=== PATIENT | female | born 1960 | race Caucasian/White ===

== ENCOUNTER 2024-12-07 13:48 | Observation (INO) | payer BC, MEDICARE ==
[2024-12-07 14:26] LABS: Basophils % (A) 0 %; Eosinophils # (A) 0.3 k/uL (0-0.7); Eosinophils % (A) 3 %; HCT 44.5 % (34.0-46.0); HGB 14.1 gm/dL (11.4-16.0); Lymphocytes # (A) 2.6 k/uL (1.0-4.8); Lymphocytes % (A) 26 %; MCH 28.9 pg (25.0-35.0); MCHC 31.7 g/dL (31.0-37.0); MCV 91.4 fL (80.0-100.0); Mean Platelet Volume 8.4; Monocytes # (A) 0.4 k/uL (0-1.0); Monocytes % (A) 4 %; Neutrophils # (A) 6.3 k/uL (1.3-7.7); Neutrophils % (A) 64 %; Platelet Count 390 k/uL (150-450); RBC 4.87 m/uL (3.80-5.40); RDW 13.4 % (11.5-15.5); WBC 9.9 k/uL (3.8-10.6)
--- NOTE | 2024-12-07 14:35 | ED ---
General Adult HPI - General Source: patient, RN notes reviewed Mode of arrival: wheelchair Limitations: no limitations <Phill Padron - Last Filed: 12/07/24 14:33> - General Source: patient, RN notes reviewed Limitations: no limitations <Arthur Chester - Last Filed: 12/07/24 20:09> - General Chief complaint: Chest Pain Stated complaint: Chest pain Time Seen by Provider: 12/07/24 14:02 - History of Present Illness Initial comments: Quick note: This is a 63-year-old female with history of GERD and diverticulitis presenting with upper abdominal pain and dyspnea since this morning. Patient states pressure (10/10) radiates to mid chest with worsening pain when coughing. Endorses associated nausea. Endorses use of sucralfate and alendronate with minimal relief. Patient states current pain is unlike other prior GI pain she has experienced. (Phill Padron) Patient is a 63-year-old female present to the emergency department with concerns for abdominal and chest discomfort. Onset of symptoms was prior to arrival. Discomfort was somewhat severe however now is mild. Discomfort started in the epigastric region and then went to the chest and now is beneath the left breast. Patient did have some associated dyspnea. No diaphoresis. Patient has had some mild nausea and spitting up. Patient does have history of a hiatal hernia. Patient does not have history of similar symptoms previously (Arthur Chester) - Related Data Allergies Allergy/AdvReac Type Severity Reaction Status Date / Time codeine Allergy Rash/Hives Verified 12/07/24 14:05 Penicillins Allergy Rash/Hives Verified 12/07/24 14:05 Review of Systems ROS Other: All systems not noted in ROS Statement are negative. <Phill Padron - Last Filed: 12/07/24 14:33> ROS Other: All systems not noted in ROS Statement are negative. Constitutional: Denies: fever Eyes: Denies: eye pain ENT: Denies: throat pain Respiratory: Reports: as per HPI Cardiovascular: Reports: as per HPI, chest pain Gastrointestinal: Reports: as per HPI Musculoskeletal: Denies: back pain Skin: Denies: rash Neurological: Denies: weakness <Arthur Chester - Last Filed: 12/07/24 20:09> ROS Statement: Those systems with pertinent positive or pertinent negative responses have been documented in the HPI. Past Medical History Past Medical History: GERD/Reflux Additional Past Medical History / Comment(s): hernia, diverticulosis History of Any Multi-Drug Resistant Organisms: None Reported Past Surgical History: Cholecystectomy Additional Past Surgical History / Comment(s): upper scope Past Psychological History: No Psychological Hx Reported Smoking Status: Never smoker Past Alcohol Use History: None Reported Past Drug Use History: Marijuana <Phill Padron - Last Filed: 12/07/24 14:33> General Exam Limitations: no limitations <Phill Padron - Last Filed: 12/07/24 14:33> Limitations: no limitations General appearance: alert, in no apparent distress Head exam: Present: normocephalic Eye exam: Present: normal appearance Neck exam: Present: normal inspection Respiratory exam: Present: normal lung sounds bilaterally. Absent: chest wall tenderness Cardiovascular Exam: Present: regular rate, normal rhythm, normal heart sounds Expanded Peripheral pulses: 2+: Radial (R), Radial (L), Posterior Tibialis (R), Posterior Tibialis (L) GI/Abdominal exam: Present: soft, tenderness (Minimal epigastric tenderness to palpation), normal bowel sounds. Absent: distended, guarding, rebound, rigid, pulsatile mass Extremities exam: Present: normal inspection. Absent: pedal edema, calf tenderness Neurological exam: Present: alert Psychiatric exam: Present: normal affect, normal mood Skin exam: Present: normal color <ChesterArthur - Last Filed: 12/07/24 20:09> - General Exam Comments Initial Comments: Visual Physical Exam Vital signs reviewed General: Pallor noted. Patient appears distressed.. Head: Normocephalic, atraumatic Eyes: PERRLA, EOMI ENT: Airway patent Chest: Nonlabored breathing Skin: No visual rash, normal skin tone Neuro: Alert and oriented 3 Musculoskeletal: No gross abnormalities (Phill Padron) Course Vital Signs 12/07/24 12/07/24 12/07/24 14:01 16:25 16:54 Temperature 97.9 F Pulse Rate 66 69 70 Respiratory 18 16 16 Rate Blood Pressure 174/96 122/79 111/76 O2 Sat by Pulse 99 97 98 Oximetry 12/07/24 17:56 Temperature Pulse Rate 72 Respiratory 20 Rate Blood Pressure 114/81 O2 Sat by Pulse 99 Oximetry EKG Findings - EKG Results: EKG: interpreted by ERMD, sinus rhythm, normal axis, normal QRS, normal ST/T <Arthur Chester - Last Filed: 12/07/24 20:09> Medical Decision Making - Lab Data Result diagrams: 12/07/24 14:12 <Phill Padron - Last Filed: 12/07/24 14:33> - Lab Data Result diagrams: 12/07/24 14:12 12/07/24 14:12 <Arthur Chester - Last Filed: 12/07/24 20:09> - Medical Decision Making I completed the quick note portion of this chart signed HUMBERTO Ackerman (Phill Padron) Was pt. sent in by a medical professional or institution (JULIAN Bautista, INTERIOR DESIGN CONSULTANT, urgent care, hospital, or retirement...) When possible be specific @ -No Did you speak to anyone other than the patient for history (EMS, parent, family, police, friend...)? What history was obtained from this source @ -No Did you review nursing and triage notes (agree or disagree)? Why? @ -I reviewed and agree with nursing and triage notes Were old charts reviewed (outside hosp., previous admission, EMS record, old EKG, old radiological studies, urgent care reports/EKG's, retirement records)? Report findings @ -No old charts were reviewed Differential Diagnosis (chest pain, altered mental status, abdominal pain women, abdominal pain men, vaginal bleeding, weakness, fever, dyspnea, syncope, headache, dizziness, GI bleed, back pain, seizure, CVA, palpatations, mental health, musculoskeletal)? @ -Differential Chest Pain: Stable Angina, Unstable Angina, STEMI, NSTEMI Aortic Dissection, Pneumothorax, Musculoskeletal, Esophageal Spasm GERD, Cholecystitis, Pancreatitis, Zoster, this is not meant to be an all-inclusive list. EKG interpreted by me (3pts min.). @ -As above X-rays interpreted by me (1pt min.). @ -Chest and abdominal x-ray revealed no acute abnormality CT interpreted by me (1pt min.). @ -None done U/S interpreted by me (1pt. min.). @ -None done What testing was considered but not performed or refused? (CT, X-rays, U/S, labs)? Why? @ -None What meds were considered but not given or refused? Why? @ -None Did you discuss the management of the patient with other professionals (professionals i.e. DrEstela, PA, INTERIOR DESIGN CONSULTANT, lab, RT, psych nurse, high school social science teacher, plate worker, teacher, tank officer, case aide)? Give summary @ -Case discussed with practitioner Lizet who will admit covering hospital call Was smoking cessation discussed for >3mins.? @ -No Was critical care preformed (if so, how long)? @ -No Were there social determinants of health that impacted care today? How? (Homelessness, low income, unemployed, alcoholism, drug addiction, transp ortation, low edu. Level, literacy, decrease access to med. care, fci, rehab)? @ -No Was there de-escalation of care discussed even if they declined (Discuss DNR or withdrawal of care, Hospice)? DNR status @ -No What co-morbidities impacted this encounter? (DM, HTN, Smoking, COPD, CAD, Cancer, CVA, ARF, Chemo, Hep., AIDS, mental health diagnosis, sleep apnea, morbid obesity)? @ -None Was patient admitted / discharged? Hospital course, mention meds given and route, prescriptions, significant lab abnormalities, going to OR and other pertinent info. @ -Patient presents with epigastric and chest discomfort. Symptoms improved on reevaluation. Patient updated. Patient will be admitted, admission orders written. Undiagnosed new problem with uncertain prognosis? @ -No Drug Therapy requiring intensive monitoring for toxicity (Heparin, Nitro, Insulin, Cardizem)? @ -No Were any procedures done? @ -No Diagnosis/symptom? @ -Chest pain Acute, or Chronic, or Acute on Chronic? @ -Acute chest pain, Uncomplicated (without systemic symptoms) or Complicated (systemic symptoms)? @ -Default Side effects of treatment? @ -No Exacerbation, Progression, or Severe Exacerbation? @ -No Poses a threat to life or bodily function? How? (Chest pain, [place], [place], pneumonia, PE, COPD, DKA, ARF, appy, cholecystitis, CVA, Diverticulitis, Homicidal, Suicidal, threat to staff... and all critical care pts) @ -Threat to cardiac function (Arthur Chester) - Lab Data Lab Results 12/07/24 12/07/24 12/07/24 Range/Units 14:12 14:12 16:31 WBC 9.9 (3.8-10.6) k/uL RBC 4.87 (3.80-5.40) m/uL Hgb 14.1 (11.4-16.0) gm/dL Hct 44.5 (34.0-46.0) % MCV 91.4 (80.0-100.0) fL MCH 28.9 (25.0-35.0) pg MCHC 31.7 (31.0-37.0) g/dL RDW 13.4 (11.5-15.5) % Plt Count 390 (150-450) k/uL MPV 8.4 Neutrophils % 64 % Lymphocytes % 26 % Monocytes % 4 % Eosinophils % 3 % Basophils % 0 % Neutrophils # 6.3 (1.3-7.7) k/uL Lymphocytes # 2.6 (1.0-4.8) k/uL Monocytes # 0.4 (0-1.0) k/uL Eosinophils # 0.3 (0-0.7) k/uL Basophils # 0.0 (0-0.2) k/uL PT 10.3 (10.0-12.5) sec INR 0.9 (<1.2) APTT 26.9 (22.0-30.0) sec D-Dimer 0.51 (<0.60) mg/L FEU Sodium 136 L (137-145) mmol/L Potassium 3.8 (3.5-5.1) mmol/L Chloride 96 L (98-107) mmol/L Carbon Dioxide 22 (22-30) mmol/L Anion Gap 18 mmol/L BUN 11 (7-17) mg/dL Creatinine 0.62 (0.52-1.04) mg/dL Est GFR (CKD-EPI)AfAm >90 (>60 ml/min/1.73 sqM) Est GFR (CKD-EPI)NonAf >90 (>60 ml/min/1.73 sqM) Glucose 111 H (74-99) mg/dL Calcium 10.1 (8.4-10.2) mg/dL Total Bilirubin 0.8 (0.2-1.3) mg/dL AST 33 (14-36) U/L ALT 23 (4-34) U/L Alkaline Phosphatase 100 (38-126) U/L Troponin I (0.000-0.034) ng/mL Total Protein 8.1 (6.3-8.2) g/dL Albumin 5.2 H (3.5-5.0) g/dL Amylase 79 (30-110) U/L Lipase 115 (23-300) U/L 12/07/24 Range/Units 16:31 WBC (3.8-10.6) k/uL RBC (3.80-5.40) m/uL Hgb (11.4-16.0) gm/dL Hct (34.0-46.0) % MCV (80.0-100.0) fL MCH (25.0-35.0) pg MCHC (31.0-37.0) g/dL RDW (11.5-15.5) % Plt Count (150-450) k/uL MPV Neutrophils % % Lymphocytes % % Monocytes % % Eosinophils % % Basophils % % Neutrophils # (1.3-7.7) k/uL Lymphocytes # (1.0-4.8) k/uL Monocytes # (0-1.0) k/uL Eosinophils # (0-0.7) k/uL Basophils # (0-0.2) k/uL PT (10.0-12.5) sec INR (<1.2) APTT (22.0-30.0) sec D-Dimer (<0.60) mg/L FEU Sodium (137-145) mmol/L Potassium (3.5-5.1) mmol/L Chloride (98-107) mmol/L Carbon Dioxide (22-30) mmol/L Anion Gap mmol/L BUN (7-17) mg/dL Creatinine (0.52-1.04) mg/dL Est GFR (CKD-EPI)AfAm (>60 ml/min/1.73 sqM) Est GFR (CKD-EPI)NonAf (>60 ml/min/1.73 sqM) Glucose (74-99) mg/dL Calcium (8.4-10.2) mg/dL Total Bilirubin (0.2-1.3) mg/dL AST (14-36) U/L ALT (4-34) U/L Alkaline Phosphatase (38-126) U/L Troponin I <0.012 (0.000-0.034) ng/mL Total Protein (6.3-8.2) g/dL Albumin (3.5-5.0) g/dL Amylase (30-110) U/L Lipase (23-300) U/L Disposition <Phill Padron - Last Filed: 12/07/24 14:33> Is patient prescribed a controlled substance at d/c from ED?: No Time of Disposition: 20:09 <Arthur Chester - Last Filed: 12/07/24 20:09> Clinical Impression: Chest pain Disposition: ADMITTED IP TO THIS HOSP Referrals: Nonstaff,Physician [REFERRING] - 1-2 days
[2024-12-07 14:45] LABS: ALT 23 U/L (4-34); AST 33 U/L (14-36); African American GFR (CKD) >90 (>60 ml/min/1.73 sqM); Albumin 5.2 g/dL (3.5-5.0); Alkaline Phosphatase 100 U/L (38-126); Amylase 79 U/L (30-110); Anion Gap 18 mmol/L; Blood Urea Nitrogen 11 mg/dL (7-17); Calcium 10.1 mg/dL (8.4-10.2); Carbon Dioxide 22 mmol/L (22-30); Chloride 96 mmol/L (98-107); Glucose 111 mg/dL (74-99); Lipase 115 U/L (23-300); Non-African American GFR(CKD) >90 (>60 ml/min/1.73 sqM); Potassium 3.8 mmol/L (3.5-5.1); Sodium 136 mmol/L (137-145); Total Bilirubin 0.8 mg/dL (0.2-1.3); Total Protein 8.1 g/dL (6.3-8.2)
--- NOTE | 2024-12-07 15:15 | XR ---
EXAMINATION TYPE: XR chest 2V DATE OF EXAM: 12/07/2024 CLINICAL INDICATION: Female, 63 years old with history of Upper abdominal pain, dyspnea, TECHNIQUE: Frontal and lateral views of the chest are obtained. COMPARISON: None FINDINGS: There is no suspicious focal air space opacity, pleural effusion, or pneumothorax seen. T he cardiac silhouette size is within normal limits. Scoliotic curvature is present. IMPRESSION: No acute cardiopulmonary process. [facility], , 12/07/2024 3:12 PM
--- NOTE | 2024-12-07 15:16 | XR ---
EXAMINATION TYPE: XR KUB DATE OF EXAM: 12/07/2024 3:02 PM CLINICAL INDICATION: Female, 63 years old with history of abdominal pain, pain TECHNIQUE: 2 upright views of the abdomen. COMPARISON: None. FINDINGS: Scattered gas is seen in non-distended small bowel loops. Gas and fecal material is seen in non-distended colon. Lung bases are clear. Cholecystectomy clips are seen. There is surgical change at the lumbosacral junction noted. No free air. There is degenerative spurring and narrowing at the l eft L3-L4 and L4-L5 disc spaces. Incidental overlying metallic umbilical ornament. IMPRESSION: Overall nonobstructive bowel gas pattern. [facility], , 12/07/2024 3:14 PM
[2024-12-07 17:06] LABS: INR 0.9 (<1.2); Partial Thromboplastin Time 26.9 sec (22.0-30.0); Prothrombin Time 10.3 sec (10.0-12.5)
[2024-12-07] MEDS ORDERED: NITROGLYCERIN SL TABS 0.4 MG TAB SUBLINGUAL PRN (20:09)
[2024-12-07] MEDS: ASPIRIN 81 MG PO STA (20:33)
[2024-12-07] MEDS: ONDANSETRON 4 MG/2 ML VIAL IVP STA (20:33)
[2024-12-07 20:40] LABS: Glucose,Whole Blood 107 mg/dL (70-110)
[2024-12-07] MEDS ORDERED: ONDANSETRON 4 MG/2 ML VIAL IVP PRN (21:06)
[2024-12-07] MEDS ORDERED: PROCHLORPERAZINE INJ 10 MG/2 ML VIAL IVP PRN (21:06)
[2024-12-07] MEDS ORDERED: CALCIUM CARBONATE 500 MG CHEWABLE PO PRN (21:07)
[2024-12-07] MEDS ORDERED: MAG HYDROX/AL HYDROX/SIMETH 30 ML CUP PO PRN (21:07)
[2024-12-07] MEDS ORDERED: ALBUTEROL NEBULIZED 2.5 MG/3 ML INHALATION PRN (21:08)
[2024-12-07] MEDS ORDERED: ACETAMINOPHEN TAB 325 MG TAB PO PRN (21:09)
[2024-12-07] MEDS: NITROGLYCERIN OINT 1 INCH/GM PACKET TOPICAL SCH (21:35)
[2024-12-07] MEDS: ATORVASTATIN 40 MG TAB PO SCH (21:36)
[2024-12-07] MEDS: SUCRALFATE 1 GM TAB PO SCH (21:36)
[2024-12-07] MEDS: PANTOPRAZOLE 40 MG/10 ML VIAL IVP SCH (21:37)
[2024-12-07] MEDS: BUTALB/APAP/CAFF 50-325-40MG TAB PO PRN (21:49)
[2024-12-08] MEDS: ASPIRIN 81 MG PO SCH (08:56)
[2024-12-08] MEDS ORDERED: ASPIRIN 325 MG TAB PO SCH (09:00)
--- NOTE | 2024-12-08 10:20 | P.CRDCN ---
History of Present Illness History of present illness: HISTORY OF PRESENT ILLNESS: This is a 63-year-old female with a past medical history significant for GERD and hyperlipidemia. 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 We have been asked to see the patient in consultation for chest pain. Patient examined at the bedside. Patient states she developed left-sided chest pain yesterday. She also reports having pain under the left rib cage. She denied any radiation of the pain. She states that she has never experienced discomfort like this in the past. She states that she has a history of a hiatal hernia and initially thought her symptoms were attributed to that. She denies any known history of CAD. She is a non-smoker. She does report alcohol use. She states that her sister of a heart attack but was taking fen-phen at the time. DIAGNOSTICS: - EKG reveals sinus mechanism with nonspecific ST-T wave changes. - Chest xray negative for acute process. - Laboratory data: WBC 9.9. Hemoglobin 14.1. Platelet count 390. D-dimer 0.51. Sodium 136. Potassium 3.8. BUN 11. Creatinine 0.62. Troponin negative x 3. - Current home cardiac medications include rosuvastatin 20 mg daily. - No previous echocardiogram, stress test, or cardiac catheterization available in EMR for review REVIEW OF SYSTEMS: At the time of my exam: CONSTITUTIONAL: Denies fever or chills. HEENT: Denies blurred vision, vision changes, or eye pain. Denies hemoptysis CARDIOVASCULAR: Denies chest pain. Denies orthopnea. Denies PND. Denies pa lpitations RESPIRATORY: Denies shortness of breath. GASTROINTESTINAL: Denies abdominal pain. Denies nausea or vomiting. HEMATOLOGIC: Denies bleeding disorders. GENITOURINARY: Denies any blood in urine. SKIN: Denies pruitis. Denies rash. PHYSICAL EXAM: VITAL SIGNS: Reviewed. GENERAL: Well-developed in no acute distress. HEENT: Head is normocephalic. Pupils are equal, round. Sclerae anicteric. Mucous membranes of the mouth are moist. Neck supple. No JVD or thyromegaly LUNGS: Respirations even and unlabored. Lungs essentially clear to auscultation bilaterally. HEART: Regular rate and rhythm. S1 and S2 heard. ABDOMEN: Soft. Nondistended. Nontender. EXTREMITIES: Normal range of motion. No clubbing or cyanosis. Peripheral pulses intact. No lower extremity edema NEUROLOGIC: Awake and alert. Oriented x 3. ASSESSMENT: Chest pain, troponin negative x 3 Hyperlipidemia GERD History of hiatal hernia PLAN: An acute coronary event has been ruled out Obtain 2D echo to assess cardiac structure and function Resume statin Add aspirin 81 mg daily Patient to undergo stress echocardiogram on Tuesday Further recommendations pending patient course Nurse practitioner note has been reviewed by physician. Signing provider agrees with the documented findings, assessment, and plan of care documented by RADIOSONDE OPERATOR as a scribe. Past Medical History Past Medical History: GERD/Reflux Additional Past Medical History / Comment(s): hernia, diverticulosis History of Any Multi-Drug Resistant Organisms: None Reported Past Surgical History: Cholecystectomy Additional Past Surgical History / Comment(s): upper scope Past Psychological History: No Psychological Hx Reported Smoking Status: Never smoker Past Alcohol Use History: None Reported Past Drug Use History: Marijuana Medications and Allergies Home Medications Medication Instructions Recorded Confirmed Type Albuterol Inhaler [Ventolin Hfa 2 puff INHALATION RT-QID PRN 12/07/24 12/07/24 History Inhaler] Butalb/APAP/Caff 50-325-40Mg 1 dose PO DIRECTED PRN 12/07/24 12/07/24 History [Fioricet 50-325-40] Effexor Xr(Unknown Dose) 1 cap PO DAILY 12/07/24 12/07/24 History Oxybutynin Xl [Ditropan XL] 5 mg PO DIRECTED 12/07/24 12/07/24 History Rosuvastatin [Crestor] 20 mg PO DIRECTED 12/07/24 12/07/24 History Sucralfate [Carafate] 1 gm PO ACHS 12/07/24 12/07/24 History Allergies Allergy/AdvReac Type Severity Reaction Status Date / Time codeine Allergy Rash/Hives Verified 12/07/24 21:02 Penicillins Allergy Rash/Hives Verified 12/07/24 21:02 Physical Exam Vitals: Vital Signs Temp Pulse Resp BP Pulse Ox 12/08/24 06:12 63 16 139/85 12/08/24 01:07 78 16 116/77 97 12/07/24 23:21 61 18 12/07/24 20:27 76 20 133/89 98 12/07/24 17:56 72 20 114/81 99 12/07/24 16:54 70 16 111/76 98 12/07/24 16:25 69 16 122/79 97 12/07/24 14:01 97.9 F 66 18 174/96 99 Results 12/07/24 14:12 12/07/24 14:12 Cardiac Enzymes 12/07/24 12/07/24 12/07/24 Range/Units 14:12 16:31 20:43 AST 33 (14-36) U/L Troponin I <0.012 <0.012 (0.000-0.034) ng/mL 12/07/24 Range/Units 23:28 AST (14-36) U/L Troponin I <0.012 (0.000-0.034) ng/mL Coagulation 12/07/24 Range/Units 16:31 PT 10.3 (10.0-12.5) sec APTT 26.9 (22.0-30.0) sec CBC 12/07/24 Range/Units 14:12 WBC 9.9 (3.8-10.6) k/uL RBC 4.87 (3.80-5.40) m/uL Hgb 14.1 (11.4-16.0) gm/dL Hct 44.5 (34.0-46.0) % Plt Count 390 (150-450) k/uL Comprehensive Metabolic Panel 12/07/24 Range/Units 14:12 Sodium 136 L (137-145) mmol/L Potassium 3.8 (3.5-5.1) mmol/L Chloride 96 L (98-107) mmol/L Carbon Dioxide 22 (22-30) mmol/L BUN 11 (7-17) mg/dL Creatinine 0.62 (0.52-1.04) mg/dL Glucose 111 H (74-99) mg/dL Calcium 10.1 (8.4-10.2) mg/dL AST 33 (14-36) U/L ALT 23 (4-34) U/L Alkaline Phosphatase 100 (38-126) U/L Total Protein 8.1 (6.3-8.2) g/dL Albumin 5.2 H (3.5-5.0) g/dL Current Medications Generic Name Dose Route Start Last Admin Trade Name Freq PRN Reason Stop Dose Admin Acetaminophen 650 mg 12/07/24 21:09 Acetaminophen Tab 325 Mg Tab PO Q6HR PRN Fever and/ or Pain Acetaminophen/Butalbital/Caffeine 1 each 12/07/24 21:08 12/07/24 21:49 Butalb/Apap/Caff 50-325-40mg Tab PO 1 each Q4HR PRN Administration Migraine Headache Al Hydroxide/Mg Hydroxide 30 ml 12/07/24 21:07 Mag Hydrox/Al Hydrox/Simeth 30 Ml Cup PO QID PRN GI Upset Albuterol Sulfate 2.5 mg 12/07/24 21:08 Albuterol Nebulized 2.5 Mg/3 Ml INHALATION RT-QID PRN Shortness Of Breath Aspirin 325 mg 12/08/24 09:00 Aspirin 325 Mg Tab PO DAILY [facility] Atorvastatin Calcium 40 mg 12/07/24 21:15 12/07/24 21:36 Atorvastatin 40 Mg Tab PO 40 mg HS [facility] Administration Calcium Carbonate/Glycine 500 mg 12/07/24 21:07 Calcium Carbonate 500 Mg Chewable PO QID PRN Heartburn Nitroglycerin 0.4 mg 12/07/24 20:09 Nitroglycerin Sl Tabs 0.4 Mg Tab SUBLINGUAL Q5M PRN Chest Pain Nitroglycerin 0.5 inch 12/07/24 20:15 12/08/24 06:33 Nitroglycerin Oint 1 Inch/Gm Packet TOPICAL Not Given Q6HR [facility] Ondansetron HCl 4 mg 12/07/24 21:06 Ondansetron 4 Mg/2 Ml Vial IVP Q6HR PRN Nausea And Vomiting Oxybutynin Chloride 5 mg 12/08/24 21:00 Oxybutynin Xl 5 Mg Tab.Er.24 PO HS [facility] Pantoprazole Sodium 40 mg 12/07/24 21:15 12/07/24 21:37 Pantoprazole 40 Mg/10 Ml Vial IVP 40 mg BID TYSHAWN Administration Prochlorperazine Edisylate 5 mg 12/07/24 21:06 Prochlorperazine Inj 10 Mg/2 Ml Vial IVP Q6HR PRN Nausea And Vomiting Sucralfate 1 gm 12/07/24 21:08 12/07/24 21:36 Sucralfate 1 Gm Tab PO 1 gm ACHS TYSHAWN Administration 12/07/24 14:12 12/07/24 14:12
--- NOTE | 2024-12-08 13:06 | CA ---
Transthoracic Echo Report Name: Rosemary Cortez Age: 63 Gender: F : 1960 Exam Date: 12/08/2024 08:12 Exam Location: [place] [facility] Ht (in): 62 Wt (lb): 115 Ordering Physician: Masha Shelton Attending/Referring Phys: [id number], Nikita Machinist Megha Lamb, PUJA Procedure CPT: Indications: LV function, chest pain Cardiac Hx: Technical Quality: Good Contrast 1: Total Dose (mL): Contrast 2: Total Dose (mL): MEASUREMENTS (Male / Female) Normal Values 2D ECHO LV Diastolic Diameter PLAX 3.8 cm 4.2 - 5.9 / 3.9 - 5.3 cm LV Systolic Diameter PLAX 2.2 cm IVS Diastolic Thickness 0.9 cm 0.6 - 1.0 / 0.6 - 0.9 cm LVPW Diastolic Thickness 0.9 cm 0.6 - 1.0 / 0.6 - 0.9 cm LV Relative Wall Thickness 0.5 RV Internal Dim ED PLAX 2.2 cm LA Systolic Diameter LX 2.6 cm 3.0 - 4.0 / 2.7 - 3.8 cm LV Diastolic Volume MOD BP 59.4 cm??? 67 - 155 / 56 - 104 cm??? LV Systolic Volume MOD BP 17.0 cm??? 22 - 58 / 19 - 49 cm??? LV Ejection Fraction MOD BP 71.3 % >= 55 % LV Cardiac Index MOD BP 1819.7 cm???/min???m??? LV Diastolic Volume MOD 4C 53.5 cm??? LV Systolic Volume MOD 4C 18.0 cm??? LV Ejection Fraction MOD 4C 66.4 % LV Cardiac Index MOD 4C 1526.9 cm???/min???m??? LV Diastolic Length 4C 6.6 cm LV Systolic Length 4C 5.5 cm LV Diastolic Volume MOD 2C 66.4 cm??? LV Systolic Volume MOD 2C 16.0 cm??? LV Ejection Fraction MOD 2C 75.9 % LV Cardiac Index MOD 2C 2165.7 cm???/min???m??? LV Diastolic Length 2C 6.6 cm LV Systolic Length 2C 5.7 cm LA Volume 39.9 cm??? 18 - 58 / 22 - 52 cm??? LA Volume Index 26.4 cm???/m??? 16 - 28 cm???/m??? M-MODE Aortic Root Diameter MM 2.5 cm LA Systolic Diameter MM 2.9 cm LA Ao Ratio MM 1.2 AV Cusp Separation MM 1.5 cm DOPPLER AI Peak Velocity 340.0 cm/s AI Peak Gradient 46.2 mmHg AI Pressure Half Time 1850.5 ms MV Area PHT 2.2 cm??? Mitral E Point Velocity 68.0 cm/s Mitral A Point Velocity 88.1 cm/s Mitral E to A Ratio 0.8 MV Deceleration Time 348.9 ms TR Peak Velocity 195.3 cm/s TR Peak Gradient 15.3 mmHg Right Ventricular Systolic Press 20.0 mmHg FINDINGS Left Ventricle Left ventricular ejection fraction is estimated at 60-65 %. Normal left ventricular systolic function with no obvious regional wall motion abnormalities. Left ventricular cavity size normal. Left ventricular wall thickness normal. Right Ventricle Normal right ventricular size and function. Right ventricular systolic pressure within normal limits. Right Atrium Normal right atrial size. Left Atrium Normal left atrial size. Patent foramen ovale present with a [id number] shunt. Mitral Valve Structurally normal mitral valve. [id number] mitral regurgitation. No mitral stenosis. Aortic Valve Trileaflet aortic valve. Trace to mild aortic regurgitation. No aortic stenosis. Tricuspid Valve Structurally normal tricuspid valve. Mild tricuspid regurgitation. No tricuspid stenosis. Pulmonic Valve Structurally normal pulmonic valve. Trace pulmonic regurgitation. No pulmonic stenosis. Pericardium No pericardial or pleural effusion. Aorta Normal size aortic root and proximal ascending aorta. CONCLUSIONS normal lv function PFO with left to rt shunt mild to moderate MR Previewed by: Dr. Moise Lujan MD (Electronically Signed) Final Date: 08 December 2024 11:30
[2024-12-08] MEDS: VENLAFAXINE HCL ER 75 MG CAP PO SCH (13:20)
[2024-12-08 13:46] LABS: Chol/HDL Ratio 2.08 Ratio; LDL Cholesterol,Calculated 66.3 mg/dL (0.0-131.0); VLDL Calculation 16.88 mg/dL (5.00-40.00)
[2024-12-08] MEDS: OXYBUTYNIN XL 5 MG TAB.ER.24 PO SCH (20:33)
--- NOTE | 2024-12-09 10:34 | P.PN ---
Subjective HISTORY OF PRESENT ILLNESS: This is a 63-year-old female with a past medical history significant for GERD and hyperlipidemia. 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 We have been asked to see the patient in consultation for chest pain. Patient examined at the bedside. Patient states she developed left-sided chest pain yesterday. She als o reports having pain under the left rib cage. She denied any radiation of the pain. She states that she has never experienced discomfort like this in the past. She states that she has a history of a hiatal hernia and initially thought her symptoms were attributed to that. She denies any known history of CAD. She is a non-smoker. She does report alcohol use. She states that her sister of a heart attack but was taking fen-phen at the time. DIAGNOSTICS: - EKG reveals sinus mechanism with nonspecific ST-T wave changes. - Chest xray negative for acute process. - Laboratory data: WBC 9.9. Hemoglobin 14.1. Platelet count 390. D-dimer 0.51. Sodium 136. Potassium 3.8. BUN 11. Creatinine 0.62. Troponin negative x 3. - Current home cardiac medications include rosuvastatin 20 mg daily. - No previous echocardiogram, stress test, or cardiac catheterization available in EMR for review 12/09/2024 Patient examined this morning at the bedside. Patient denies any further episodes of chest pain or pressure. She denies shortness of breath. Vital signs are stable. Echocardiogram completed revealing ejection fraction 60 to 65%, no obvious regional wall motion abnormalities, PFO with [id number]-[id number]-qvrxj shunt, and mild to moderate MR PHYSICAL EXAM: VITAL SIGNS: Reviewed. GENERAL: Well-developed in no acute distress. HEENT: Head is normocephalic. Pupils are equal, round. Sclerae anicteric. Mucous membranes of the mouth are moist. Neck supple. No JVD or thyromegaly LUNGS: Respirations even and unlabored. Lungs essentially clear to auscultation bilaterally. HEART: Regular rate and rhythm. S1 and S2 heard. ABDOMEN: Soft. Nondistended. Nontender. EXTREMITIES: Normal range of motion. No clubbing or cyanosis. Peripheral pulses intact. No lower extremity edema NEUROLOGIC: Awake and alert. Oriented x 3. ASSESSMENT: Chest pain, troponin negative x 3 Hyperlipidemia GERD History of hiatal hernia PFO with hcsp-hy-cqdiv shunt, per echo Mild to moderate mitral regurgitation PLAN: Continue current cardiac medications including aspirin and atorvastatin N.p.o. at midnight Patient to undergo stress echocardiogram tomorrow. If patient unable to reach her target heart rate with ambulation, will change stress test to dobutamine stress echo Further recommendations pending patient course Patient to follow-up in the office with Dr. Lujan in 4 weeks Nurse practitioner note has been reviewed by physician. Signing provider agrees with the documented findings, assessment, and plan of care documented by UNIFORM DESIGNER as a scribe. Objective - Vital Signs Vital signs: Vital Signs Temp 97.7 F 12/09/24 07:00 Pulse 88 12/09/24 07:00 Resp 16 12/09/24 07:00 BP 108/71 12/09/24 07:00 Pulse Ox 97 12/09/24 07:00 FiO2 Intake & Output 12/08/24 12/09/24 12/09/24 18:59 06:59 18:59 Intake Total 354 Balance 354 Weight 52.163 kg Intake: Oral 354 Other: # Voids 1 2 - Labs CBC & Chem 7: 12/07/24 14:12 12/07/24 14:12 Labs: Abnormal Lab Results - Last 24 Hours (Table) 12/07/24 Range/Units 14:12 HDL Cholesterol 76.80 H (40.00-60.00) mg/dL
--- NOTE | 2024-12-09 14:36 | P.HPIM ---
History of Present Illness H&P Date: 12/08/24 Chief Complaint: Chest pain 63-year-old female, history of hyperlipidemia, presented to ED with complaint and further evaluation for chest pain. Patient states she developed left-sided chest pain yesterday. She also reports having pain under the left rib cage. She denied any radiation of the pain. She states that she has never experienced discomfort like this in the past. She states that she has a history of a hiatal hernia and initially thought her symptoms were attributed to that. She denies any known history of CAD. She is a non-smoker. She does report alcohol use. She states that her sister of a heart attack but was taking fen-phen at the time. Workup completed in ED reveals - EKG reveals sinus mechanism with nonspecific ST-T wave changes. - Chest xray negative for acute process. - Laboratory data: WBC 9.9. Hemoglobin 14.1. Platelet count 390. D-dimer 0.51. Sodium 136. Potassium 3.8. BUN 11. Creatinine 0.62. Troponin negative x 3. - Current home cardiac medications include rosuvastatin 20 mg daily. Review of Systems REVIEW OF SYSTEMS: CONSTITUTIONAL: No fever, no malaise, no fatigue. HEENT: No recent visual problems or hearing problems. Denied any sore throat. CARDIOVASCULAR: No chest pain, orthopnea, PND, no palpitations, no syncope. PULMONARY: No shortness of breath, no cough, no hemoptysis. GASTROINTESTINAL: No diarrhea, no nausea, no vomiting, no abdominal pain. NEUROLOGICAL: No headaches, no weakness, no numbness. HEMATOLOGICAL: Denies any bleeding or petechiae. GENITOURINARY: Denies any burning micturition, frequency, or urgency. MUSCULOSKELETAL/RHEUMATOLOGICAL: Denies any joint pain, swelling, or any muscle pain. ENDOCRINE: Denies any polyuria or polydipsia. The rest of the 14-point review of systems is negative. Past Medical History Past Medical History: GERD/Reflux Additional Past Medical History / Comment(s): hernia, diverticulosis, carpaal tumnnel History of Any Multi-Drug Resistant Organisms: None Reported Past Surgical History: Back Surgery, Section, Cholecystectomy, Orthopedic Surgery Additional Past Surgical History / Comment(s): upper scope Past Psychological History: No Psychological Hx Reported Smoking Status: Current every day smoker Past Alcohol Use History: None Reported Past Drug Use History: Marijuana Medications and Allergies Home Medications Medication Instructions Recorded Confirmed Type Albuterol Inhaler [Ventolin Hfa 2 puff INHALATION RT-QID PRN 12/07/24 12/07/24 History Inhaler] Butalb/APAP/Caff 50-325-40Mg 1 dose PO DIRECTED PRN 12/07/24 12/07/24 History [Fioricet 50-325-40] Oxybutynin Xl [Ditropan XL] 5 mg PO HS 12/07/24 12/08/24 History Rosuvastatin [Crestor] 20 mg PO HS 12/07/24 12/08/24 History Sucralfate [Carafate] 1 gm PO ACHS 12/07/24 12/07/24 History ALPRAZolam [Xanax] 0.5 mg PO BID PRN 12/08/24 12/08/24 History Alendronate Sodium [Fosamax] 70 mg PO MO 12/08/24 12/08/24 History Venlafaxine HCl [Effexor XR] 75 mg PO DAILY 12/08/24 12/08/24 History Allergies Allergy/AdvReac Type Severity Reaction Status Date / Time codeine Allergy Rash/Hives Verified 12/07/24 21:02 Penicillins Allergy Rash/Hives Verified 12/07/24 21:02 Physical Exam Vitals: Vital Signs Temp Pulse Pulse Resp BP BP Pulse Ox 12/08/24 07:00 98.2 F 66 16 123/73 99 12/08/24 06:12 63 16 139/85 12/08/24 01:07 78 16 116/77 97 12/07/24 23:21 61 18 12/07/24 20:27 76 20 133/89 98 12/07/24 17:56 72 20 114/81 99 12/07/24 16:54 70 16 111/76 98 12/07/24 16:25 69 16 122/79 97 12/07/24 14:01 97.9 F 66 18 174/96 99 Intake and Output 12/07/24 12/08/24 12/08/24 22:59 06:59 14:59 Intake Total 118 Balance 118 Intake: Oral 118 Other: Weight 52.163 kg VITAL SIGNS: Reviewed. GENERAL: Well-developed in no acute distress. HEENT: Head is normocephalic. Pupils are equal, round. Sclerae anicteric. Mucous membranes of the mouth are moist. Neck supple. No JVD or thyromegaly LUNGS: Respirations even and unlabored. Lungs essentially clear to auscultation bilaterally. HEART: Regular rate and rhythm. S1 and S2 heard. ABDOMEN: Soft. Nondistended. Nontender. EXTREMITIES: Normal range of motion. No clubbing or cyanosis. Peripheral pulses intact. No lower extremity edema NEUROLOGIC: Awake and alert. Oriented x 3. Results CBC & Chem 7: 12/07/24 14:12 12/07/24 14:12 Labs: Abnormal Lab Results - Last 24 Hours (Table) 12/07/24 Range/Units 14:12 Sodium 136 L (137-145) mmol/L Chloride 96 L (98-107) mmol/L Glucose 111 H (74-99) mg/dL Albumin 5.2 H (3.5-5.0) g/dL Thrombosis Risk Factor Assmnt - Choose All That Apply Any of the Below Risk Factors Present?: No Other Risk Factors: Yes Each Risk Factor Represents 2 Points: Age 61-74 years Thrombosis Risk Factor Assessment Total Risk Factor Score: 2 Thrombosis Risk Factor Assessment Level: Low Risk Assessment and Plan Assessment: 1. Chest pain; rule out acute coronary syndrome -Patient has been admitted to telemetry; monitor EKG and trend troponin -Recommend 2D echo Consult cardiology 2. Hyperlipidemia; Crestor 20 mg p.o. nightly 3. Gastroesophageal reflux disease/gastritis; continue home dose of Carafate 1 g p.o. ACH S 4. Urinary incontinence/retention; Ditropan XL 5 mg nightly 5. Anxiety/depression; Xanax 0.5 mg twice daily, Effexor XR 75 mg daily DVT prophylaxis; SCDs CODE STATUS; full code
--- NOTE | 2024-12-09 14:38 | P.PN ---
Subjective Progress Note Date: 12/09/24 63-year-old female, history of hyperlipidemia, presented to ED with complaint and further evaluation for chest pain. Patient states she developed left-sided chest pain yesterday. She also reports having pain under the left rib cage. She denied any radiation of the pain. She states that she has never experienced discomfort like this in the past. She states that she has a history of a hiatal hernia and initially thought her symptoms were attributed to that. She denies any known history of CAD. She is a non-smoker. She does report alcohol use. She states that her sister of a heart attack but was taking fen-phen at the time. Workup completed in ED reveals - EKG reveals sinus mechanism with nonspecific ST-T wave changes. - Chest xray negative for acute process. - Laboratory data: WBC 9.9. Hemoglobin 14.1. Platelet count 390. D-dimer 0.51. Sodium 136. Potassium 3.8. BUN 11. Creatinine 0.62. Troponin negative x 3. - Current home cardiac medications include rosuvastatin 20 mg daily. --Patient is scheduled for a stress echo to normal; continue with aspirin and statins; further recommendations once echo is completed Objective - Vital Signs Vital signs: Vital Signs Temp 97.7 F 12/09/24 07:00 Pulse 88 12/09/24 07:00 Resp 16 12/09/24 07:00 BP 108/71 12/09/24 07:00 Pulse Ox 97 12/09/24 07:00 FiO2 Intake & Output 12/08/24 12/09/24 12/09/24 18:59 06:59 18:59 Intake Total 354 Balance 354 Weight 52.163 kg Intake: Oral 354 Other: # Voids 1 2 - Exam VITAL SIGNS: Reviewed. GENERAL: Well-developed in no acute distress. HEENT: Head is normocephalic. Pupils are equal, round. Sclerae anicteric. Mucous membranes of the mouth are moist. Neck supple. No JVD or thyromegaly LUNGS: Respirations even and unlabored. Lungs essentially clear to auscultation bilaterally. HEART: Regular rate and rhythm. S1 and S2 heard. ABDOMEN: Soft. Nondistended. Nontender. EXTREMITIES: Normal range of motion. No clubbing or cyanosis. Peripheral pulses intact. No lower extremity edema NEUROLOGIC: Awake and alert. Oriented x 3. - Labs CBC & Chem 7: 03/14/25 14:12 12/07/24 14:12 Labs: Abnormal Lab Results - Last 24 Hours (Table) 12/07/24 Range/Units 14:12 HDL Cholesterol 76.80 H (40.00-60.00) mg/dL Assessment and Plan Assessment: 1. Chest pain; rule out acute coronary syndrome -Patient has been admitted to telemetry; monitor EKG and trend troponin -Recommend 2D echo Consult cardiology 2. Hyperlipidemia; Crestor 20 mg p.o. nightly 3. Gastroesophageal reflux disease/gastritis; continue home dose of Carafate 1 g p.o. ACH S 4. Urinary incontinence/retention; Ditropan XL 5 mg nightly 5. Anxiety/depression; Xanax 0.5 mg twice daily, Effexor XR 75 mg daily DVT prophylaxis; SCDs CODE STATUS; full code
[2024-12-09] MEDS: ALPRAZolam 0.5 MG TAB PO STA (21:42)
[2024-12-10 03:06] VITALS: TEMP 98.4
[2024-12-10 07:39] VITALS: BP 115/74; PULSE 83; RESP 16
--- NOTE | 2024-12-10 11:15 | P.PN ---
Subjective Progress Note Date: 12/10/24 HISTORY OF PRESENT ILLNESS: This is a 63-year-old female with a past medical history significant for GERD and hyperlipidemia. 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 We have been asked to see the patient in consultation for chest pain. Patient examined at the bedside. Patient states she developed left-sided chest pain yesterday. She also reports having pain under the left rib cage. She denied any radiation of the pain. She states that she has never experienced discomfort like this in the past. She states that she has a history of a hiatal hernia and initially thought her symptoms were attributed to that. She denies any known history of CAD. She is a non-smoker. She does report alcohol use. She states that her sister of a heart attack but was taking fen-phen at the time. DIAGNOSTICS: - EKG reveals sinus mechanism with nonspecific ST-T wave changes. - Chest xray negative for acute process. - Laboratory data: WBC 9.9. Hemoglobin 14.1. Platelet count 390. D-dimer 0.51. Sodium 136. Potassium 3.8. BUN 11. Creatinine 0.62. Troponin negative x 3. - Current home cardiac medications include rosuvastatin 20 mg daily. - No previous echocardiogram, stress test, or cardiac catheterization available in EMR for review 12/09/2024 Patient examined this morning at the bedside. Patient denies any further episodes of chest pain or pressure. She denies shortness of breath. Vital signs are stable. Echocardiogram completed revealing ejection fraction 60 to 65%, no obvious regional wall motion abnormalities, PFO with [id number] shunt, and mild to moderate MR 12/10 Patient is seen and examined. She is scheduled for stress echocardiogram today. No complaints of chest pain or chest pressure. Blood pressure 115/74, heart rate 83, pulse ox 97% on room air. PHYSICAL EXAM: VITAL SIGNS: Reviewed. GENERAL: Well-developed in no acute distress. HEENT: Head is normocephalic. Pupils are equal, round. Sclerae anicteric. Mucous membranes of the mouth are moist. Neck supple. No JVD or thyromegaly LUNGS: Respirations even and unlabored. Lungs essentially clear to auscultation bilaterally. HEART: Regular rate and rhythm. S1 and S2 heard. ABDOMEN: Soft. Nondistended. Nontender. EXTREMITIES: Normal range of motion. No clubbing or cyanosis. Peripheral pulses intact. No lower extremity edema NEUROLOGIC: Awake and alert. Oriented x 3. ASSESSMENT: Chest pain, troponin negative x 3 Hyperlipidemia GERD History of hiatal hernia PFO with hrdn-rs-vduzo shunt, per echo Mild to moderate mitral regurgitation PLAN: Continue current cardiac medications including aspirin and atorvastatin N.p.o. Patient to undergo stress echocardiogram this morning. If patient unable to reach her target heart rate with ambulation, will change stress test to dobutamine stress echo If stress test is unremarkable, patient is cleared for discharge from cardiology. Patient to follow-up in the office with Dr. Lujan in 4 weeks Nurse practitioner note has been reviewed by physician. Signing provider agrees with the documented findings, assessment, and plan of care documented by BLUE SPLIT TRIMMER as a scribe. Objective - Vital Signs Vital signs: Vital Signs Temp 98.4 F 12/10/24 07:00 Pulse 83 12/10/24 07:00 Resp 16 12/10/24 07:00 BP 115/74 12/10/24 07:00 Pulse Ox 97 12/10/24 07:00 FiO2 Intake & Output 12/09/24 12/10/24 12/10/24 18:59 06:59 18:59 Intake Total 240 Balance 240 Intake: Oral 240 Other: Voiding Method Toilet Toilet # Voids 4 1 # Bowel Movements 1 - Labs CBC & Chem 7: 12/07/24 14:12 12/07/24 14:12
--- NOTE | 2024-12-10 12:52 | CA ---
Stress Echo Report Rosemary Cortez Age: 63 Gender: F : 1960 Exam Date: 12/10/2024 10:06 Exam Location: [place] Stress Ht (in): 62 Wt (lb): 115 Ordering Physician: Masha Shelton Referring Physician: [id number] Guest Advisor: abiodun teague Technologist Procedure CPT: Indication: Chest pain, Change to dobi if HR not achieved ICD-9 Codes: Rhythm: Patient History: Cardiac Medications: see chart Medications in past 24 hours: Contrast: N/A Stress Results Protocol: Nael Total dose(mL): NA Exercise Duration (min:sec): 6:[address] Depression (mm): Angina Score: Ryan Score: METS: Resting HR: 77 Resting BP: 131 / 78 Peak HR: 149 Peak BP: 168 / 88 Max Predicted HR: 155 96 % Max Predicted HR Target HR: 132 Double Product: [id number] Stress Summary: BP Response: Reason for Termination: Reached target heart rate or work-load Cardiac Symptoms: no symptoms ECG Analysis Resting ECG: Stress ECG: Arrhythmia: Echo Analysis Resting Echo: Peak Echo Analysis: MEASUREMENTS (Male/Female) Normal Values CONCLUSIONS Baseline EKG revealed normal sinus rhythm without significant ST-T changes. Patient walked on a standard Nael protocol for a total duration of 6 minutes 55 seconds and achieved a maximal heart rate of 148 bpm which is well above 85% of maximal heart rate. No angina no arrhythmia patient developed shortness of breath and fatigue. EKG did not reveal any ST segment changes to indicate ischemia. This is a negative stress test with fair exercise capacity Baseline echo images revealed normal wall motion and wall thickening of all segments. At peak exercise there was good augmentation of left ventricular wall motion and wall thickening of all segments suggesting that there is no evidence of stress- induced ischemia on the study. Final impression: #1 fair exercise capacity with a negative stress test by EKG criteria and normal stress echocardiogram without evidence of ischemia Dr. Nichole Downs MD (Electronically Signed) Final Date: 10 December 2024 12:51
--- NOTE | 2024-12-11 05:53 | P.DS ---
Providers Date of admission: 12/07/24 20:10 Attending physician: Yessica Watson Consults: 12/07/24 20:10 Consult Physician Urgent Consulting Provider: Abhishek Guthrie Consult Reason/Comments: cp Do you want consulting provider notified?: Yes Primary care physician: Keanu Iraheta [facility] Course: Diagnoses: Chest pain, most likely musculoskeletal versus other. Cardiac and pulmonary causes ruled out with negative D-dimer 0.51 and negative stress test Patent foramen ovale with [id number]-[id number] shunt Hyperlipidemia Gastroesophageal reflux disease History of urine incontinence on Ditropan History of anxiety and depression Hospital course: Patient presents because of chest pain. She had negative D-dimer 0.5, troponin x 3 negative, echocardiogram showed ejection fraction 60 to 65% with patent foramina ovale with [id number] shunt KUB showed nonobstructive gas pattern chest x-ray is negative for acute process. Patient evaluated by fish cleaner. Patient had negative stress test and cardiology today cleared for discharge. Today patient was fully awake oriented denies chest pain or dyspnea. Any other new complaint is denied by the patient. Patient wants to go home Patient was cleared for discharge by fish cleaner Problems and management plan were discussed with the patient and he verbalized understanding and acceptance Patient was found stable and can be discharged home in guarded prognosis however he needs follow-up as an outpatient. Patient was instructed to follow up with PCP within one week and patient agrees Patient was instructed to follow-up with her fish cleaner Dr. Fair in 2 weeks after discharge and she agrees Physical exam Gen: patient is a AAOx3, no distress CVS: S1-S2, RRR, no murmur Lungs: B/L CTA, no wheezing Abdomen: soft, no distention, no tenderness, positive bowel sounds Extremity: no leg edema or induration Time spent more than 35 minutes Patient Condition at Discharge: Fair Plan - Discharge Summary Discharge Rx Participant: Yes New Discharge Prescriptions: Continue Sucralfate [Carafate] 1 gm PO ACHS Butalb/APAP/Caff 50-325-40Mg [Fioricet 50-325-40] 1 tab PO DAILY PRN PRN Reason: Migraine Headache Oxybutynin Xl [Ditropan XL] 5 mg PO HS Alendronate Sodium [Fosamax] 70 mg PO MO ALPRAZolam [Xanax] 0.5 mg PO BID PRN PRN Reason: Anxiety Albuterol Inhaler [Ventolin Hfa Inhaler] 2 puff INHALATION RT-QID PRN PRN Reason: Shortness Of Breath Rosuvastatin [Crestor] 20 mg PO HS Venlafaxine HCl [Effexor XR] 75 mg PO DAILY Discharge Medication List Albuterol Inhaler [Ventolin Hfa Inhaler] 2 puff INHALATION RT-QID PRN 12/07/24 [History] Butalb/APAP/Caff 50-325-40Mg [Fioricet 50-325-40] 1 tab PO DAILY PRN 12/07/24 [History] Oxybutynin Xl [Ditropan XL] 5 mg PO HS 12/07/24 [History] Rosuvastatin [Crestor] 20 mg PO HS 12/07/24 [History] Sucralfate [Carafate] 1 gm PO ACHS 12/07/24 [History] ALPRAZolam [Xanax] 0.5 mg PO BID PRN 12/08/24 [History] Alendronate Sodium [Fosamax] 70 mg PO MO 12/08/24 [History] Venlafaxine HCl [Effexor XR] 75 mg PO DAILY 12/08/24 [History] Follow up Appointment(s)/Referral(s): Nonstaff,Physician [REFERRING] - 1-2 days Moise Lujan MD [STAFF PHYSICIAN] - 2 Weeks Patient Instructions/Handouts: Chest Pain (GEN) Activity/Diet/Wound Care/Special Instructions: Heart healthy diet Activity is restricted till you see your doctor Discharge Disposition: HOME SELF-CARE
== END 2024-12-10 14:24 | disposition home or self-care (01) ==
LOC: EC 13:48 → 6NMEDSUR 20:10
PROVIDERS: ADMIT Hospitalist; ATTEND Hospitalist
DX: R07.89 Other chest pain (principal); K21.9 Gastro-esophageal reflux disease without esophagitis; E78.5 Hyperlipidemia, unspecified; K44.9 Diaphragmatic hernia without obstruction or gangrene; R32 Unspecified urinary incontinence; I34.0 Nonrheumatic mitral (valve) insufficiency; F32.A Depression, unspecified; F41.9 Anxiety disorder, unspecified; F17.200 Nicotine dependence, unspecified, uncomplicated; Z87.74 Personal history of (corrected) congenital malformations of heart and circulatory system; Z90.49 Acquired absence of other specified parts of digestive tract; Z79.83 Long term (current) use of bisphosphonates; Z79.899 Other long term (current) drug therapy; Z88.0 Allergy status to penicillin; Z88.5 Allergy status to narcotic agent
CPT/HCPCS: 96376 ×3; 96374; 96375; 99285; 36415; 93005 ×2; 93306; 93351; 85379; 80061; 80053; 82150; 83690; 84484; 85025; 85610; 85730; 83036; 71046; 74018; G0378 ×4; J2405; J2470 ×4

== ENCOUNTER 2025-04-05 12:29 | Inpatient (IN) | payer MEDICARE ==
--- NOTE | 2025-04-05 13:41 | ED ---
General Adult HPI - General Chief complaint: Abdominal Pain Stated complaint: Abd pain/abn labs-scans Time Seen by Provider: 04/05/25 13:25 Source: patient, RN notes reviewed, old records reviewed Mode of arrival: ambulatory Limitations: no limitations - History of Present Illness Initial comments: 64-year-old female presenting with abdominal pain. Patient had an outpatient CT performed yesterday and was called and told there was concern for perforation. She states she was diagnosed with diverticulitis and is currently on oral ciprofloxacin. She has felt lower abdominal pain and has had chills. She also reports some hematuria. Patient reports prior history of diverticulosis. Patient denies vomiting. - Related Data Home Medications Medication Instructions Recorded Confirmed Albuterol Inhaler [Ventolin Hfa 2 puff INHALATION RT-QID PRN 12/07/24 12/07/24 Inhaler] Butalb/APAP/Caff 50-325-40Mg 1 tab PO DAILY PRN 12/07/24 12/10/24 [Fioricet 50-325-40] Oxybutynin Xl [Ditropan XL] 5 mg PO HS 12/07/24 12/08/24 Rosuvastatin [Crestor] 20 mg PO HS 12/07/24 12/08/24 Sucralfate [Carafate] 1 gm PO ACHS 12/07/24 12/07/24 ALPRAZolam [Xanax] 0.5 mg PO BID PRN 12/08/24 12/08/24 Alendronate Sodium [Fosamax] 70 mg PO MO 12/08/24 12/08/24 Venlafaxine HCl [Effexor XR] 75 mg PO DAILY 12/08/24 12/08/24 Allergies Allergy/AdvReac Type Severity Reaction Status Date / Time codeine Allergy Rash/Hives Verified 04/05/25 12:40 Penicillins Allergy Rash/Hives Verified 04/05/25 12:40 Review of Systems ROS Statement: Those systems with pertinent positive or pertinent negative responses have been documented in the HPI. ROS Other: All systems not noted in ROS Statement are negative. Past Medical History Past Medical History: GERD/Reflux Additional Past Medical History / Comment(s): hernia, diverticulosis, carpaal tumnnel History of Any Multi-Drug Resistant Organisms: None Reported Past Surgical History: Back Surgery, Section, Cholecystectomy, Orthopedic Surgery Additional Past Surgical History / Comment(s): upper scope Past Psychological History: No Psychological Hx Reported Smoking Status: Former smoker Past Alcohol Use History: None Reported Past Drug Use History: Marijuana General Exam Limitations: no limitations General appearance: alert, in no apparent distress Head exam: Present: atraumatic, normocephalic Eye exam: Present: normal appearance, PERRL ENT exam: Present: normal exam Neck exam: Present: normal inspection. Absent: tenderness, meningismus Respiratory exam: Present: normal lung sounds bilaterally. Absent: respiratory distress, wheezes Cardiovascular Exam: Present: regular rate, normal rhythm GI/Abdominal exam: Present: soft, tenderness (Suprapubic and bilateral lower). Absent: distended, guarding, rebound, rigid Extremities exam: Present: normal inspection Neurological exam: Present: alert, oriented X3, CN II-XII intact. Absent: motor sensory deficit Psychiatric exam: Present: normal affect, normal mood Skin exam: Present: warm, dry, intact Course Vital Signs 04/05/25 04/05/25 12:35 15:46 Temperature 97.9 F Pulse Rate 79 80 Respiratory 18 18 Rate Blood Pressure 126/86 120/80 O2 Sat by Pulse 97 97 Oximetry Medical Decision Making - Medical Decision Making Was pt. sent in by a medical professional or institution (, PA, REINFORCING IRON WORKER HELPER, urgent c are, hospital, or [place] [facility] facility...) When possible be specific @ -Sent in with abnormal outpatient CT Did you speak to anyone other than the patient for history (EMS, parent, family, police, friend...)? What history was obtained from this source @ -No Did you review nursing and triage notes (agree or disagree)? Why? @ -I reviewed and agree with nursing and triage notes Were old charts reviewed (outside hosp., previous admission, EMS record, old EKG, old radiological studies, urgent care reports/EKG's, [place] health care facility records)? Report findings @ -No old charts were reviewed Differential Abdominal Pain Women: Appendicitis, Cholecystitis, diverticulosis, ischemic bowel, pancreatitis, hepatitis, UTI, gastroenteritis, AAA, incarcerated hernia, bowel obstruction, constipation, inflammatory bowel, hepatitis, peptic ulcer disease, splenic infarction, perforated viscus, vulvitis, ovarian torsion, PID, kidney stone, placenta abruption, this is not meant to be an all-inclusive list EKG interpreted by me (3pts min.). @ -As above X-rays interpreted by me (1pt min.). @ -None done CT interpreted by me (1pt min.). @ -[CT report from yesterday shows a diverticulitis with perforation Repeat CT from today is not showing discrete abscess or perforation, there is colitis present. U/S interpreted by me (1pt. min.). @ -None done What testing was considered but not performed or refused? (CT, X-rays, U/S, labs)? Why? @ -None What meds were considered but not given or refused? Why? @ -None Did you discuss the management of the patient with other professionals (professionals i.e. , PA, REINFORCING IRON WORKER HELPER, lab, RT, psych nurse, secondary social studies teacher, accountant assistant, teacher, unemployment insurance hearing officer, oil field caser)? Give summary @Case discussed with Dr. Medel, will admit. Case discussed with Dr. Roque covering for surgery, no plan for surgery at this time request admission to medicine with consult. Was smoking cessation discussed for >3mins.? @ -No Was critical care preformed (if so, how long)? @ -No Were there social determinants of health that impacted care today? How? (Homelessness, low income, unemployed, alcoholism, drug addiction, transportation, low edu. Level, literacy, decrease access to med. care, long-term, rehab)? @ -No Was there de-escalation of care discussed even if they declined (Discuss DNR or withdrawal of care, Hospice)? DNR status @ -No What co-morbidities impacted this encounter? (DM, HTN, Smoking, COPD, CAD, Cancer, CVA, ARF, Chemo, Hep., AIDS, mental health diagnosis, sleep apnea, morb id obesity)? @ -None Was patient admitted / discharged? Hospital course, mention meds given and rou te, prescriptions, significant lab abnormalities, going to OR and other pertinent info. @64-year-old female presenting with abdominal pain, outpatient CT showing diverticulitis with perforation. Patient well-appearing with stable vitals. She has not leukocytosis of 12. Otherwise normal laboratory testing. Repeat CT today shows inflammation within the sigmoid colon consistent with colitis. No intra-abdominal abscess or intraperitoneal free air. Patient continued on Cipro and Flagyl and admitted to internal medicine with general surgery on consult. Undiagnosed new problem with uncertain prognosis? @ -No Drug Therapy requiring intensive monitoring for toxicity (Heparin, Nitro, Insulin, Cardizem)? @ -No Were any procedures done? @ -No Diagnosis/symptom? @ -Diverticulitis, colitis Acute, or Chronic, or Acute on Chronic? @ -[Acute Uncomplicated (without systemic symptoms) or Complicated (systemic symptoms)? @ -Default Side effects of treatment? @ -No Exacerbation, Progression, or Severe Exacerbation? @ -No Poses a threat to life or bodily function? How? (Chest pain, [place], [place], pneumonia, PE, COPD, DKA, ARF, appy, cholecystitis, CVA, Diverticulitis, Homicidal, Suicidal, threat to staff... and all critical care pts) @Yes, sepsis - Lab Data Result diagrams: 04/05/25 13:50 04/05/25 13:50 Lab Results 04/05/25 04/05/25 04/05/25 Range/Units 13:50 13:50 13:50 WBC 11.81 H (4.50-10.00) 10*3/uL RBC 4.23 (4.10-5.20) 10*6/uL Hgb 12.0 (12.0-15.0) g/dL Hct 36.8 L (37.2-46.3) % MCV 87.0 (80.0-97.0) fL MCH 28.4 (27.0-32.0) pg MCHC 32.6 (32.0-37.0) g/dL Plt Count 309 (140-440) 10*3/uL MPV 9.8 (9.5-12.2) fL Immature Gran % (Auto) 0.3 % Neutrophils % 75.7 % Lymphocytes % 14.7 % Monocytes % 7.1 % Eosinophils % 1.9 % Basophils % 0.3 % Immature Gran # 0.03 (0.00-0.04) 10*3/uL Neutrophils # 8.93 H (1.80-7.70) 10*3/uL Lymphocytes # 1.74 (0.90-5.00) 10*3/uL Monocytes # 0.84 (0.20-1.00) 10*3/uL Eosinophils # 0.23 (0.04-0.35) 10*3/uL Basophils # 0.04 (0.00-0.10) 10*3/uL PT 10.2 (10.0-12.5) sec INR 0.9 (<1.2) APTT 26.1 (22.0-30.0) sec Sodium 138 (137-145) mmol/L Potassium 4.8 (3.5-5.1) mmol/L Chloride 100 (98-107) mmol/L Carbon Dioxide 28 (22-30) mmol/L Anion Gap 10 mmol/L BUN 11 (7-17) mg/dL Creatinine 0.63 (0.52-1.04) mg/dL Est GFR (CKD-EPI)AfAm >90 (>60 ml/min/1.73 sqM) Est GFR (CKD-EPI)NonAf >90 (>60 ml/min/1.73 sqM) Glucose 95 (74-99) mg/dL Plasma Lactic Acid Ric (0.7-2.0) mmol/L Calcium 9.8 (8.4-10.2) mg/dL Total Bilirubin 0.5 (0.2-1.3) mg/dL AST 36 (14-36) U/L ALT 25 (4-34) U/L Alkaline Phosphatase 88 (38-126) U/L Total Protein 7.5 (6.3-8.2) g/dL Albumin 4.5 (3.5-5.0) g/dL Amylase 58 (30-110) U/L Lipase 63 (23-300) U/L Urine Color Urine Appearance (Clear) Urine pH (5.0-8.0) Ur Specific Ione (1.001-1.035) Urine Protein (Negative) Urine Glucose (UA) (Negative) Urine Ketones (Negative) Urine Blood (Negative) Urine Nitrite (Negative) Urine Bilirubin (Negative) Urine Urobilinogen (<2.0) mg/dL Ur Leukocyte Esterase (Negative) Urine RBC (0-5) /hpf Urine WBC (0-5) /hpf 04/05/25 04/05/25 Range/Units 13:50 14:22 WBC (4.50-10.00) 10*3/uL RBC (4.10-5.20) 10*6/uL Hgb (12.0-15.0) g/dL Hct (37.2-46.3) % MCV (80.0-97.0) fL MCH (27.0-32.0) pg MCHC (32.0-37.0) g/dL Plt Count (140-440) 10*3/uL MPV (9.5-12.2) fL Immature Gran % (Auto) % Neutrophils % % Lymphocytes % % Monocytes % % Eosinophils % % Basophils % % Immature Gran # (0.00-0.04) 10*3/uL Neutrophils # (1.80-7.70) 10*3/uL Lymphocytes # (0.90-5.00) 10*3/uL Monocytes # (0.20-1.00) 10*3/uL Eosinophils # (0.04-0.35) 10*3/uL Basophils # (0.00-0.10) 10*3/uL PT (10.0-12.5) sec INR (<1.2) APTT (22.0-30.0) sec Sodium (137-145) mmol/L Potassium (3.5-5.1) mmol/L Chloride (98-107) mmol/L Carbon Dioxide (22-30) mmol/L Anion Gap mmol/L BUN (7-17) mg/dL Creatinine (0.52-1.04) mg/dL Est GFR (CKD-EPI)AfAm (>60 ml/min/1.73 sqM) Est GFR (CKD-EPI)NonAf (>60 ml/min/1.73 sqM) Glucose (74-99) mg/dL Plasma Lactic Acid Ric 1.1 (0.7-2.0) mmol/L Calcium (8.4-10.2) mg/dL Total Bilirubin (0.2-1.3) mg/dL AST (14-36) U/L ALT (4-34) U/L Alkaline Phosphatase (38-126) U/L Total Protein (6.3-8.2) g/dL Albumin (3.5-5.0) g/dL Amylase (30-110) U/L Lipase (23-300) U/L Urine Color Colorless Urine Appearance Clear (Clear) Urine pH 6.5 (5.0-8.0) Ur Specific [place] 1.004 (1.001-1.035) Urine Protein Negative (Negative) Urine Glucose (UA) Negative (Negative) Urine Ketones Negative (Negative) Urine Blood Trace H (Negative) Urine Nitrite Negative (Negative) Urine Bilirubin Negative (Negative) Urine Urobilinogen <2.0 (<2.0) mg/dL Ur Leukocyte Esterase Negative (Negative) Urine RBC <1 (0-5) /hpf Urine WBC 1 (0-5) /hpf Disposition Clinical Impression: Abdominal pain, Diverticulitis of colon with perforation Disposition: ADMITTED IP TO THIS HOSP Condition: Stable Is patient prescribed a controlled substance at d/c from ED?: No Referrals: Keanu Iraheta MD [Primary Care Provider] - 1-2 days Time of Disposition: 16:22
[2025-04-05 14:04] LABS: Basophils # (A) 0.04 10*3/uL (0.00-0.10); Basophils % (A) 0.3 %; Eosinophils # (A) 0.23 10*3/uL (0.04-0.35); Eosinophils % (A) 1.9 %; HCT 36.8 % (37.2-46.3); HGB 12.0 g/dL (12.0-15.0); Lymphocytes # (A) 1.74 10*3/uL (0.90-5.00); Lymphocytes % (A) 14.7 %; MCH 28.4 pg (27.0-32.0); MCHC 32.6 g/dL (32.0-37.0); MCV 87.0 fL (80.0-97.0); Monocytes # (A) 0.84 10*3/uL (0.20-1.00); Monocytes % (A) 7.1 %; Neutrophils # (A) 8.93 10*3/uL (1.80-7.70); Neutrophils % (A) 75.7 %; Platelet Count 309 10*3/uL (140-440); RBC 4.23 10*6/uL (4.10-5.20); RDW 13.8 % (11.5-14.5); WBC 11.81 10*3/uL (4.50-10.00)
[2025-04-05] MEDS: metroNIDAZOLE-NS PMX 500 MG in SALINE 1 100ML.BAG IVPB STA (14:05)
[2025-04-05] MEDS: LACTATED RINGERS 1,000 ML IV SCH (14:06)
[2025-04-05 14:20] LABS: ALT 25 U/L (4-34); AST 36 U/L (14-36); African American GFR (CKD) >90 (>60 ml/min/1.73 sqM); Albumin 4.5 g/dL (3.5-5.0); Alkaline Phosphatase 88 U/L (38-126); Amylase 58 U/L (30-110); Anion Gap 10 mmol/L; Blood Urea Nitrogen 11 mg/dL (7-17); Calcium 9.8 mg/dL (8.4-10.2); Carbon Dioxide 28 mmol/L (22-30); Chloride 100 mmol/L (98-107); Glucose 95 mg/dL (74-99); Lipase 63 U/L (23-300); Non-African American GFR(CKD) >90 (>60 ml/min/1.73 sqM); Potassium 4.8 mmol/L (3.5-5.1); Sodium 138 mmol/L (137-145); Total Protein 7.5 g/dL (6.3-8.2)
[2025-04-05 14:22] LABS: INR 0.9 (<1.2); Partial Thromboplastin Time 26.1 sec (22.0-30.0); Prothrombin Time 10.2 sec (10.0-12.5)
[2025-04-05 14:40] LABS: Bilirubin,Urine Negative (Negative); Blood,Urine Trace (Negative); Color,Urine Colorless; Glucose,Urine (UA) Negative (Negative); Ketones,Urine Negative (Negative); Leukocyte Esterase,Urine Negative (Negative); Nitrite,Urine Negative (Negative); PH, Urine 6.5 (5.0-8.0); Protein,Urine Negative (Negative); RBC,Urine <1 /hpf (0-5); Specific Gravity,Urine 1.004 (1.001-1.035); Urobilinogen,Urine <2.0 mg/dL (<2.0); WBC,Urine 1 /hpf (0-5)
[2025-04-05] MEDS: LEVOFLOXACIN 500MG-D5W PMX 500 MG in DEXTROSE/WATER 1 100ML.BAG IVPB STA (14:41)
--- NOTE | 2025-04-05 15:52 | CT ---
EXAMINATION TYPE: CT abdomen pelvis w con DATE OF EXAM: 04/05/2025 3:17 PM COMPARISON: None. CLINICAL INDICATION: Female, 64 years old with history of abdominal pain/diverticulitis with perforat ion?, Lower abdominal pain and blood in her urine x a week. Pt was sent for concerns for "perforation " on a CT she had done yesterday. TECHNIQUE: Axial images were obtained from above the diaphragm to the pubic rami in the axial plane a t 5 mm thick sections. Reconstructed images are reviewed on the computer in the coronal plane. CONTRAST: 100 ml mL of Isovue 300. Study performed without Oral Contrast DLP: 481 mGycm, Automated exposure control for dose reduction was used. FINDINGS: Limited CT sections are obtained the lung bases. The lung bases are clear. CT ABDOMEN: Liver: Normal Spleen: Normal Pancreas: Normal Adrenal glands: The adrenal glands are normal. Gallbladder: Surgically absent Kidneys: No masses are evident. No hydronephrosis is present. No cysts are present. Delayed images were obtained through the kidneys, which remain unremarkable. Aorta: Vascular calcification is within the aorta. Inferior vena cava: Normal. CT PELVIS: There is thickening through the distal sigmoid colon. Couple of diverticuli are present. Mild diverti culitis may be present. Underlying mass should be considered. Follow-up sigmoidoscopy recommended whe n the patient is stable. No free air is identified. No abscess formation is identified. There is some scattered fluid-filled small bowel loops which may be related to mild ileus. No obstruction is ident ified. No suspicious dilated bowel are evident. This study is without oral contrast limiting bowel ev aluation. Appendix: Normal as visualized. Urinary bladder: Normal. Genitourinary structures: Uterus appears normal. Adnexa are normal. Osseous structures: No suspicious lytic or sclerotic lesions. Postsurgical changes at the L5 level. N o lumbar stenosis is identified. Degenerative disc changes present L5-S1. Disc spacer may be present. There is loss of disc height L4-5. Broad-based disc bulge is present at L4-5 with ligamentum flavum laxity may have some mild spinal canal stenosis. IMPRESSION: 1. Disc bulging and ligamentum flavum laxity L4-5 level with some spinal canal narrowing. 2. Mild sigmoid colon thickening through the distal portion. Correlate for colitis or underlying mass . Follow-up recommended. 3. No suspicious changes to suggest abscess formation or acute diverticulitis. No perforation is iden tified. [facility], , 04/05/2025 3:50 PM
[2025-04-05] MEDS ORDERED: ACETAMINOPHEN TAB 325 MG TAB PO PRN (16:17)
[2025-04-05] MEDS ORDERED: ONDANSETRON 4 MG/2 ML VIAL IVP PRN (16:17)
[2025-04-05] MEDS ORDERED: NALOXONE 0.4 MG/ML 1 ML VIAL IV PRN (16:17)
[2025-04-05] MEDS: HYDROmorphone 0.5 MG/0.5 ML SYRINGE IVP PRN (17:11)
[2025-04-05] MEDS: metroNIDAZOLE-NS PMX 500 MG in SALINE 1 100ML.BAG IVPB SCH (20:02)
[2025-04-05] MEDS ORDERED: BUTALB/APAP/CAFF 50-325-40MG TAB PO PRN (21:24)
[2025-04-06] MEDS: LORazepam 1 MG TAB PO PRN (01:30)
[2025-04-06] MEDS: SERTRALINE 100 MG TAB PO SCH (08:14)
--- NOTE | 2025-04-06 12:09 | P.GSCN ---
History of Present Illness Consult date: 04/06/25 History of present illness: Patient seen and evaluated. She reports having a recent upper endoscopy at outside facility in [facility] less than 2 months ago. Patient reports that she has stomach ulcers. She was placed on Carafate 1 g 4 times daily however not continued at this time. Patient denies any personal history of osteoporosis. She did have a bone density study. Additionally, she reports getting routine colonoscopies for presumed ulcerative colitis but that was discontinued. Last colonoscopy may have been 5+ years ago. Patient reports being on antibiotics as outpatient by her primary care provider for at least 1 week. She reports during the pain she was eating broccoli high-fiber diet. Pain has improved in the past 1 week but still present. Pain is more localized to suprapubic left lower quadrant. Repeat CT scan done at this facility demonstrates no diffuse free air. Localized colitis identified. Patient also reporting of neck stiffness. Plan: Recommend adjustment of IV fluids from 130 mL/h to 75 cc/h as her BMI is 19.8 Recommend continue antibiotics. Overall, uncomplicated diverticulitis improved within 72 hours otherwise 3 days for anticipated disposition Continue full liquid diet if she still has abdominal tenderness Patient started on Protonix 40 mg twice daily while inpatient to address stomach ulcers For neck stiffness, Flexeril 10 mg twice daily started. Nonnarcotic pain management with Toradol also prescribed. As IV Toradol was given was likely to exacerbate ulcers. May benefit from outpatient lower endoscopy in 4 to 6 weeks. No acute surgical intervention at this time. Shared decision making performed with patient at bedside with agreement of care plan. Past Medical History Past Medical History: GERD/Reflux Additional Past Medical History / Comment(s): hernia, diverticulosis, carpaal tumnnel History of Any Multi-Drug Resistant Organisms: None Reported Past Surgical History: Back Surgery, Section, Cholecystectomy, Orthopedic Surgery Additional Past Surgical History / Comment(s): upper scope Past Psychological History: No Psychological Hx Reported Smoking Status: Former smoker Past Alcohol Use History: None Reported Past Drug Use History: Marijuana Medications and Allergies Home Medications Medication Instructions Recorded Confirmed Type Albuterol Inhaler [Ventolin Hfa 2 puff INHALATION RT-QID PRN 12/07/24 04/05/25 History Inhaler] Butalb/APAP/Caff 50-325-40Mg 1 tab PO DAILY PRN 12/07/24 04/05/25 History [Fioricet 50-325-40] Oxybutynin Xl [Ditropan XL] 5 mg PO HS 12/07/24 04/05/25 History Rosuvastatin [Crestor] 20 mg PO HS 12/07/24 04/05/25 History Sucralfate [Carafate] 1 gm PO ACHS 12/07/24 04/05/25 History Calcium Carbonate/Vitamin D3 1 tab PO DAILY 04/05/25 04/05/25 History [Calcium 600-D3 20 mcg (800 Unit)] Ciprofloxacin HCl 500 mg PO Q12H 04/05/25 04/05/25 History LORazepam [Ativan] 1 mg PO BID 04/05/25 04/05/25 History Multivit with Calcium,Iron,Min 1 tab PO DAILY 04/05/25 04/05/25 History [Women's Multivitamin] Sertraline [Zoloft] 100 mg PO DAILY 04/05/25 04/05/25 History Triple [place] 1 dose PO DAILY 04/05/25 04/05/25 History Allergies Allergy/AdvReac Type Severity Reaction Status Date / Time codeine Allergy Rash/Hives Verified 04/05/25 17:13 Penicillins Allergy Rash/Hives Verified 04/05/25 17:13 Surgical - Exam Vital Signs Temp Pulse Resp BP Pulse Ox 97.9 F 79 18 126/86 97 04/05/25 12:35 04/05/25 12:35 04/05/25 12:35 04/05/25 12:35 04/05/25 12:35 Results - Labs 04/05/25 13:50 04/05/25 13:50 Abnormal Lab Results - Last 24 Hours (Table) 04/05/25 04/05/25 Range/Units 13:50 14:22 WBC 11.81 H (4.50-10.00) 10*3/uL Hct 36.8 L (37.2-46.3) % Neutrophils # 8.93 H (1.80-7.70) 10*3/uL Urine Blood Trace H (Negative) Diabetes panel 04/05/25 Range/Units 13:50 Sodium 138 (137-145) mmol/L Potassium 4.8 (3.5-5.1) mmol/L Chloride 100 (98-107) mmol/L Carbon Dioxide 28 (22-30) mmol/L BUN 11 (7-17) mg/dL Creatinine 0.63 (0.52-1.04) mg/dL Glucose 95 (74-99) mg/dL Calcium 9.8 (8.4-10.2) mg/dL AST 36 (14-36) U/L ALT 25 (4-34) U/L Alkaline Phosphatase 88 (38-126) U/L Total Protein 7.5 (6.3-8.2) g/dL Albumin 4.5 (3.5-5.0) g/dL Calcium panel 04/05/25 Range/Units 13:50 Calcium 9.8 (8.4-10.2) mg/dL Albumin 4.5 (3.5-5.0) g/dL Pituitary panel 04/05/25 Range/Units 13:50 Sodium 138 (137-145) mmol/L Potassium 4.8 (3.5-5.1) mmol/L Chloride 100 (98-107) mmol/L Carbon Dioxide 28 (22-30) mmol/L BUN 11 (7-17) mg/dL Creatinine 0.63 (0.52-1.04) mg/dL Glucose 95 (74-99) mg/dL Calcium 9.8 (8.4-10.2) mg/dL Adrenal panel 04/05/25 Range/Units 13:50 Sodium 138 (137-145) mmol/L Potassium 4.8 (3.5-5.1) mmol/L Chloride 100 (98-107) mmol/L Carbon Dioxide 28 (22-30) mmol/L BUN 11 (7-17) mg/dL Creatinine 0.63 (0.52-1.04) mg/dL Glucose 95 (74-99) mg/dL Calcium 9.8 (8.4-10.2) mg/dL Total Bilirubin 0.5 (0.2-1.3) mg/dL AST 36 (14-36) U/L ALT 25 (4-34) U/L Alkaline Phosphatase 88 (38-126) U/L Total Protein 7.5 (6.3-8.2) g/dL Albumin 4.5 (3.5-5.0) g/dL
[2025-04-06] MEDS: CYCLOBENZAPRINE 10 MG TAB PO SCH (12:18)
[2025-04-06] MEDS: KETOROLAC 15 MG/ML 1 ML VIAL IVP SCH (12:18)
[2025-04-06] MEDS: PANTOPRAZOLE 40 MG TABLET PO SCH (12:18)
[2025-04-06] MEDS: SODIUM CHLORIDE 0.9% 1,000 ML IV ONE (12:19)
[2025-04-06 12:37] LABS: Basophils # (A) 0.04 10*3/uL (0.00-0.10); Basophils % (A) 0.5 %; Eosinophils # (A) 0.18 10*3/uL (0.04-0.35); Eosinophils % (A) 2.1 %; HCT 36.0 % (37.2-46.3); HGB 11.4 g/dL (12.0-15.0); Lymphocytes # (A) 1.66 10*3/uL (0.90-5.00); Lymphocytes % (A) 19.3 %; MCH 28.1 pg (27.0-32.0); MCHC 31.7 g/dL (32.0-37.0); MCV 88.7 fL (80.0-97.0); Monocytes # (A) 0.74 10*3/uL (0.20-1.00); Monocytes % (A) 8.6 %; Neutrophils # (A) 5.96 10*3/uL (1.80-7.70); Neutrophils % (A) 69.2 %; Platelet Count 289 10*3/uL (140-440); RBC 4.06 10*6/uL (4.10-5.20); RDW 13.7 % (11.5-14.5); WBC 8.61 10*3/uL (4.50-10.00)
[2025-04-06] MEDS: SODIUM CHLORIDE 0.9% 1,000 ML IV SCH (13:29)
[2025-04-06] MEDS: LEVOFLOXACIN 500MG-D5W PMX 500 MG in DEXTROSE/WATER 1 100ML.BAG IVPB SCH (15:38)
[2025-04-06] MEDS: CEFEPIME 2 GM in SODIUM CHLORIDE 0.9% 100 ML IVPB SCH (15:41)
[2025-04-06] MEDS ORDERED: ALBUTEROL NEBULIZED 2.5 MG/3 ML INHALATION PRN (15:55)
--- NOTE | 2025-04-06 15:56 | P.HPIM ---
History of Present Illness H&P Date: 04/06/25 History of present illness; patient is 64-year old lady with past medical history significant for hyperlipidemia, diverticulitis who presented to the ER for abdominal pain. Patient stated that she was having abdominal pain for the last few days, was diagnosed as having diverticulitis and was placed on oral antibiotics. Patient stated that he continued to have abdominal pain. There was no complaint nausea or vomiting. Patient denies any fever or chills. There was no complaint of chest pain. Patient denies any orthopnea or PND. Patient had a repeat CT scan done outpatient yesterday at which time she was called to come to the ER for possible perforation. Initial lab work done in the ER showed WBC 11.81, hemoglobin 12, platelet count 309, sodium 130, potassium 4.8, BUN 11, creatinine 0.63, glucose 95, AST 30, ALT 25, lipase 63 UA negative for infection CT abdominal pelvis showed disc bulging and ligamentum flavum laxity L4-L5 with some spinal canal narrowing. Mild sigmoid colon thickening suspicious for colitis Patient admitted to internal medicine service REVIEW OF SYSTEMS: CONSTITUTIONAL: No fever, no malaise, no fatigue. HEENT: No recent visual problems or hearing problems. Denied any sore throat. CARDIOVASCULAR: No chest pain, orthopnea, PND, no palpitations, no syncope. PULMONARY: No shortness of breath, no cough, no hemoptysis. GASTROINTESTINAL: Mentioned above NEUROLOGICAL: No headaches, no weakness, no numbness. HEMATOLOGICAL: Denies any bleeding or petechiae. GENITOURINARY: Denies any burning micturition, frequency, or urgency. MUSCULOSKELETAL/RHEUMATOLOGICAL: Denies any joint pain, swelling, or any muscle pain. ENDOCRINE: Denies any polyuria or polydipsia. The rest of the 14-point review of systems is negative. PHYSICAL EXAMINATION: GENERAL: The patient is alert and oriented x3, not in any acute distress. Well developed, well nourished. HEENT: Pupils are round and equally reacting to light. EOMI. No scleral icterus. No conjunctival pallor. Normocephalic, atraumatic. No pharyngeal erythema. No thyromegaly. CARDIOVASCULAR: S1 and S2 present. No murmurs, rubs, or gallops. PULMONARY: Chest is clear to auscultation, no wheezing or crackles. ABDOMEN: Soft, tenderness left lower quadrant, nondistended, normoactive bowel sounds. No palpable organomegaly. MUSCULOSKELETAL: No joint swelling or deformity. EXTREMITIES: No cyanosis, clubbing, or pedal edema. NEUROLOGICAL: Gross neurological examination did not reveal any focal deficits. SKIN: No rashes. Assessment and plan Acute colitis of sigmoid colon History of hyperlipidemia History of gastric ulcer Monitor vital signs Monitor CBC Monitor CMP Ordered IV fluids Ordered pain management Ordered IV cefepime and Flagyl Currently clear liquid diet, advance as tolerated Resume home meds Surgery consulted ID consulted Labs and medication were reviewed.. Continue same treatment. Continue with symptomatic treatment. Resume home medication. Monitor labs and vitals. DVT and GI prophylaxis. Further recommendations as per clinical course of the patient Dictation was produced using [employer] dictation software. please excuse any grammatical, word or spelling errors. Past Medical History Past Medical History: GERD/Reflux Additional Past Medical History / Comment(s): hernia, diverticulosis, carpaal tumnnel History of Any Multi-Drug Resistant Organisms: None Reported Past Surgical History: Back Surgery, Section, Cholecystectomy, Orthopedic Surgery Additional Past Surgical History / Comment(s): upper scope Past Psychological History: No Psychological Hx Reported Smoking Status: Former smoker Past Alcohol Use History: None Reported Past Drug Use History: Marijuana Medications and Allergies Home Medications Medication Instructions Recorded Confirmed Type Albuterol Inhaler [Ventolin Hfa 2 puff INHALATION RT-QID PRN 12/07/24 04/05/25 History Inhaler] Butalb/APAP/Caff 50-325-40Mg 1 tab PO DAILY PRN 12/07/24 04/05/25 History [Fioricet 50-325-40] Oxybutynin Xl [Ditropan XL] 5 mg PO HS 12/07/24 04/05/25 History Rosuvastatin [Crestor] 20 mg PO HS 12/07/24 04/05/25 History Sucralfate [Carafate] 1 gm PO ACHS 12/07/24 04/05/25 History Calcium Carbonate/Vitamin D3 1 tab PO DAILY 04/05/25 04/05/25 History [Calcium 600-D3 20 mcg (800 Unit)] Ciprofloxacin HCl 500 mg PO Q12H 04/05/25 04/05/25 History LORazepam [Ativan] 1 mg PO BID 04/05/25 04/05/25 History Multivit with Calcium,Iron,Min 1 tab PO DAILY 04/05/25 04/05/25 History [Women's Multivitamin] Sertraline [Zoloft] 100 mg PO DAILY 04/05/25 04/05/25 History Triple Tok 1 dose PO DAILY 04/05/25 04/05/25 History Allergies Allergy/AdvReac Type Severity Reaction Status Date / Time codeine Allergy Rash/Hives Verified 04/05/25 17:13 Penicillins Allergy Rash/Hives Verified 04/05/25 17:13 Physical Exam Vitals: Vital Signs Temp Pulse Resp BP Pulse Ox 04/06/25 14:12 98.2 F 58 L 16 107/61 96 04/06/25 07:40 97.5 F L 69 16 113/73 95 04/06/25 01:17 99.2 F 70 15 113/52 93 L 04/05/25 19:59 97.9 F 70 17 118/71 96 Intake and Output 04/06/25 04/06/25 04/06/25 06:59 14:59 22:59 Other: # Voids 3 Results CBC & Chem 7: 04/06/25 12:22 04/05/25 13:50 Labs: Abnormal Lab Results - Last 24 Hours (Table) 04/06/25 Range/Units 12:22 RBC 4.06 L (4.10-5.20) 10*6/uL Hgb 11.4 L (12.0-15.0) g/dL Hct 36.0 L (37.2-46.3) % MCHC 31.7 L (32.0-37.0) g/dL MPV 9.4 L (9.5-12.2) fL Thrombosis Risk Factor Assmnt - Choose All That Apply Any of the Below Risk Factors Present?: No Each Risk Factor Represents 2 Points: Age 61-74 years Thrombosis Risk Factor Assessment Total Risk Factor Score: 2 Thrombosis Risk Factor Assessment Level: Low Risk
[2025-04-06] MEDS: SUCRALFATE 1 GM TAB PO SCH (17:32)
[2025-04-06] MEDS: OXYBUTYNIN XL 5 MG TAB.ER.24 PO SCH (20:25)
[2025-04-06] MEDS: LORazepam 1 MG TAB PO SCH (20:25)
[2025-04-06] MEDS: ATORVASTATIN 40 MG TAB PO SCH (20:25)
--- NOTE | 2025-04-06 22:55 | P.CONS ---
History of Present Illness - Reason for Consult Consult date: 04/06/25 Perforated diverticulitis Requesting physician: Pola Quintana - Chief Complaint Abdominal pain x 1 week - History of Present Illness Patient is a 64-year-old female with a past medical history significant for reflux diverticulosis hernia former smoker has been dealing with abdominal pain for about a week patient was describing pain to be across the lower abdominal area describing it to be sharp moderate intensity patient did have associated nausea but no vomiting denies any diarrhea patient did have outpatient workup with a CT abdominal pelvis did have evidence of perforated diverticulitis for the patient was advised to go to the hospital on arrival to the patient did have another CT abdominal pelvis performed which shows mid sigmoid colon thickening to the distal portion correlate for colitis no suspicious changes suggest abscess formation or acute diverticulitis no perforation is identified however this CAT scan was done with IV contrast only patient was started on Levaquin and Flagyl infectious disease was consulted for further management of antibiotic therapy patient on presentation to the hospital was afebrile no fever Hemoccult subsequently patient was not tachycardic hypotensive or hypoxic did have elevated white of 11.81 with a left shift kidney function has been normal UA has been negative Review of Systems Positive point and negatives has been mentioned in the HPI, complete review of systems was performed and all other systems are negative Past Medical History Past Medical History: GERD/Reflux Additional Past Medical History / Comment(s): hernia, diverticulosis, carpaal tumnnel History of Any Multi-Drug Resistant Organisms: None Reported Past Surgical History: Back Surgery, Section, Cholecystectomy, Orthopedic Surgery Additional Past Surgical History / Comment(s): upper scope Past Psychological History: No Psychological Hx Reported Smoking Status: Former smoker Past Alcohol Use History: None Reported Past Drug Use History: Marijuana Medications and Allergies Home Medications Medication Instructions Recorded Confirmed Type Albuterol Inhaler [Ventolin Hfa 2 puff INHALATION RT-QID PRN 12/07/24 04/05/25 History Inhaler] Butalb/APAP/Caff 50-325-40Mg 1 tab PO DAILY PRN 12/07/24 04/05/25 History [Fioricet 50-325-40] Oxybutynin Xl [Ditropan XL] 5 mg PO HS 12/07/24 04/05/25 History Rosuvastatin [Crestor] 20 mg PO HS 12/07/24 04/05/25 History Sucralfate [Carafate] 1 gm PO ACHS 12/07/24 04/05/25 History Calcium Carbonate/Vitamin D3 1 tab PO DAILY 04/05/25 04/05/25 History [Calcium 600-D3 20 mcg (800 Unit)] Ciprofloxacin HCl 500 mg PO Q12H 04/05/25 04/05/25 History LORazepam [Ativan] 1 mg PO BID 04/05/25 04/05/25 History Multivit with Calcium,Iron,Min 1 tab PO DAILY 04/05/25 04/05/25 History [Women's Multivitamin] Sertraline [Zoloft] 100 mg PO DAILY 04/05/25 04/05/25 History Triple [place] 1 dose PO DAILY 04/05/25 04/05/25 History Allergies Allergy/AdvReac Type Severity Reaction Status Date / Time codeine Allergy Rash/Hives Verified 04/05/25 17:13 Penicillins Allergy Rash/Hives Verified 04/05/25 17:13 Physical Exam Vitals: Vital Signs Temp Pulse Pulse Resp BP BP Pulse Ox 04/06/25 14:12 98.2 F 58 L 16 107/61 96 04/06/25 07:40 97.5 F L 69 16 113/73 95 04/06/25 01:17 99.2 F 70 15 113/52 93 L 04/05/25 19:59 97.9 F 70 17 118/71 96 04/05/25 15:46 80 18 120/80 97 Intake and Output 04/06/25 04/06/25 04/06/25 06:59 14:59 22:59 Other: # Voids 3 GENERAL DESCRIPTION: Elderly female lying in bed, no distress. No tachypnea or accessory muscle of respiration use. HEENT: Shows Pallor , no scleral icterus. Oral mucous membrane is dry. No pharyngeal erythema or thrush NECK: Trachea central, no thyromegaly. LUNGS: Unlabored breathing. Clear to auscultation anteriorly. No wheeze or crackle. HEART: S1, S2, regular rate and rhythm. No loud murmur ABDOMEN: Soft, mild lower abdominal tenderness EXTREMITIES: No edema of feet. SKIN: No rash, no masses palpable. NEUROLOGICAL: The patient is awake, alert, oriented x3, mood and affect normal. Results CBC & Chem 7: 04/06/25 12:22 04/05/25 13:50 Labs: Abnormal Lab Results - Last 24 Hours (Table) 04/06/25 Range/Units 12:22 RBC 4.06 L (4.10-5.20) 10*6/uL Hgb 11.4 L (12.0-15.0) g/dL Hct 36.0 L (37.2-46.3) % MCHC 31.7 L (32.0-37.0) g/dL MPV 9.4 L (9.5-12.2) fL Assessment and Plan (1) Acute diverticulitis Current Visit: Yes Status: Acute Code(s): K57.92 - DVTRCLI OF INTEST, PART UNSP, W/O PERF OR ABSCESS W/O BLEED SNOMED Code(s): 406329246 (2) Penicillin allergy Current Visit: Yes Status: Acute Code(s): Z88.0 - ALLERGY STATUS TO PENICILLIN SNOMED Code(s): 53131490 (3) Leukocytosis Current Visit: Yes Status: Acute Code(s): D72.829 - ELEVATED WHITE BLOOD CELL COUNT, UNSPECIFIED SNOMED Code(s): 476077747 Plan: 1patient presented to hospital abdominal pain of 1 week duration pain has been lower abdominal area with the outpatient CT abdominal pelvis done with oral contrast this shows acute sigmoid colitis with contained perforation and adjacent phlegmon, will need to cover for the enteric gram-negative both aerobes and anaerobes 2-patient did have penicillin allergy that would limit the number of antibiotic safe to use 3-leukocytosis likely related to perforated diverticulitis and phlegmon 4-discontinue Levaquin 5-we will treat the patient with cefepime and add Flagyl while waiting for the workup to be completed We will follow on clinical condition and cultures to further adjust medication if needed Thank you for this consultation we will follow the patient along with you Dictation was produced using [employer] dictation software. please excuse any grammatical, word or spelling errors. Time with Patient: Greater than 30
--- NOTE | 2025-04-07 09:32 | P.PN ---
Subjective Progress Note Date: 04/07/25 CHIEF COMPLAINT: Diverticulitis HISTORY OF PRESENT ILLNESS: The patient is a 64-year-old female admitted for diverticulitis unresponsive to outpatient management. She reports having a small bowel movement earlier this morning. She reports mucus no blood in stools. She reports tolerating liquids however still having abdominal soreness. ROS: No reports of nausea and vomiting. No fevers or chills. No new chest pain. No productive sputum PHYSICAL EXAM: VITAL SIGNS: Reviewed CONSTITUTIONAL: Well developed and in no acute distress. EYES: Conjuctivae without sclera icterus. Extraocular movements grossly intact. HEAD, EARS, NOSE, THROAT: Moist buccal mucosa. Head is atraumatic, normocepha lic. Hears conversational speech. No nasal drainage. RESPIRATORY: Non-labored respirations and equal bilateral excursions. CARDIOVASCULAR: Palpable 2+ radial pulses. ABDOMEN: No diffuse peritonitis. Mild left lower quadrant tenderness. MUSCULOSKELETAL: No gross deformity of the lower extremities noted. No clubbing. No cyanosis. SKIN: Good skin turgor. Well perfused. NEUROLOGIC: Cranial nerves II through XII grossly intact. No focal or lateralizing signs. PSYCH: Appropriate affect. Alert and oriented to person, place and time. CLINICAL LABS: Reviewed. WBC down from 11-8, normal ASSESSMENT: 1. Diverticulitis 2. Gastric ulcers PLAN: 1. Continue Protonix for gastric ulcers 2. Outpatient colonoscopy in 4 to 6 weeks described. 3. Continue clear liquid diet for today. Will advance to full liquid diet in the morning. 4. Disposition Home likely in 24 hours after tolerating full liquid diet in the morning and appropriate oral antibiotics for home Dictation was produced using [employer] dictation software. Please excuse any grammatical, word or spelling errors. Objective - Vital Signs Vital signs: Vital Signs Temp 97.8 F 04/07/25 08:00 Pulse 63 04/07/25 08:00 Resp 16 04/07/25 08:00 BP 135/73 04/07/25 08:00 Pulse Ox 99 04/07/25 08:00 FiO2 Intake & Output 04/06/25 04/07/25 04/07/25 18:59 06:59 18:59 Other: # Voids 3 3 - Labs CBC & Chem 7: 04/06/25 12:22 04/05/25 13:50 Labs: Abnormal Lab Results - Last 24 Hours (Table) 04/06/25 Range/Units 12:22 RBC 4.06 L (4.10-5.20) 10*6/uL Hgb 11.4 L (12.0-15.0) g/dL Hct 36.0 L (37.2-46.3) % MCHC 31.7 L (32.0-37.0) g/dL MPV 9.4 L (9.5-12.2) fL Microbiology - Last 24 Hours (Table) 04/05/25 13:50 Blood Culture - Preliminary Blood
[2025-04-07] MEDS: ACETAMINOPHEN IV (For NPO) 750 MG in EMPTY BAG 1 BAG IVPB SCH (13:08)
--- NOTE | 2025-04-07 15:54 | P.PN ---
Subjective Progress Note Date: 04/07/25 Principal diagnosis: Reason for follow-up is perforated diverticulitis with contained abscess Patient is a 64-year-old female with a past medical history significant for reflux diverticulosis hernia former smoker has been dealing with abdominal pain for about a week did have a abdominal pelvis CT in the outpatient setting with evidence of diverticulitis and contained perforation for the patient has been admitted to the hospital. On today's evaluation that is 04/07/2025, Patient is afebrile patient is currently on room air and denies having any shortness of breath, the patient denies any chest pain or cough, the patient denies any nausea vomiting or improvement abdominal pain. Patient white normalized to 8.61 blood cultures pending Objective - Vital Signs Vital signs: Vital Signs Temp 98.2 F 04/07/25 13:15 Pulse 73 04/07/25 13:15 Resp 16 04/07/25 13:15 BP 109/69 04/07/25 13:15 Pulse Ox 96 04/07/25 13:15 FiO2 Intake & Output 04/06/25 04/07/25 04/07/25 18:59 06:59 18:59 Other: # Voids 3 3 - Exam GENERAL DESCRIPTION: An elderly female lying in bed in no distress RESPIRATORY SYSTEM: Unlabored breathing , decreased breath sounds at bases HEART: S1 S2 regular rate and rhythm , ABDOMEN: Soft , no tenderness EXTREMITIES: No edema feet - Labs CBC & Chem 7: 04/06/25 12:22 04/05/25 13:50 Labs: Microbiology - Last 24 Hours (Table) 04/05/25 13:50 Blood Culture - Preliminary Blood Assessment and Plan (1) Acute diverticulitis Current Visit: Yes Status: Acute Code(s): K57.92 - DVTRCLI OF INTEST, PART UNSP, W/O PERF OR ABSCESS W/O BLEED SNOMED Code(s): 453243822 (2) Penicillin allergy Current Visit: Yes Status: Acute Code(s): Z88.0 - ALLERGY STATUS TO PENICILLIN SNOMED Code(s): 75099604 (3) Leukocytosis Current Visit: Yes Status: Acute Code(s): D72.829 - ELEVATED WHITE BLOOD CELL COUNT, UNSPECIFIED SNOMED Code(s): 205383649 Plan: 1patient presented to hospital abdominal pain of 1 week duration pain has been lower abdominal area with the outpatient CT abdominal pelvis done with oral contrast this shows acute sigmoid colitis with contained perforation and adjacent phlegmon, will need to cover for the enteric gram-negative both aerobes and anaerobes 2-patient did have penicillin allergy that would limit the number of antibiotic safe to use 3-leukocytosis likely related to perforated diverticulitis and phlegmon which seem to have resolved 4-we will treat the patient with cefepime and add Flagyl while inpatient and monitor clinical course closely at the bedside multiple questions answered Dictation was produced using [employer] dictation software. please excuse any grammatical, word or spelling errors. Time with Patient: Less than 30
--- NOTE | 2025-04-07 16:14 | P.PN ---
Subjective Progress Note Date: 04/07/25 64-year old lady with past medical history significant for hyperlipidemia, diverticulitis who presented to the ER for abdominal pain. Patient stated that she was having abdominal pain for the last few days, was diagnosed as having diverticulitis and was placed on oral antibiotics. Patient stated that he continued to have abdominal pain. There was no complaint nausea or vomiting. Patient denies any fever or chills. There was no complaint of chest pain. Patient denies any orthopnea or PND. Patient had a repeat CT scan done outpatient yesterday at which time she was called to come to the ER for possible perforation. Initial lab work done in the ER showed WBC 11.81, hemoglobin 12, platelet count 309, sodium 130, potassium 4.8, BUN 11, creatinine 0.63, glucose 95, AST 30, ALT 25, lipase 63 UA negative for infection CT abdominal pelvis showed disc bulging and ligamentum flavum laxity L4-L5 with some spinal canal narrowing. Mild sigmoid colon thickening suspicious for colitis Patient admitted to internal medicine service 04/07. Patient seen examined. States abdominal pain has improved. Denies any nausea or vomiting. Currently on clear liquid diet REVIEW OF SYSTEMS: CONSTITUTIONAL: No fever, no malaise,. CARDIOVASCULAR: No chest pain, no palpitations, no syncope. PULMONARY: No shortness of breath, no cough, GASTROINTESTINAL: Mentioned above NEUROLOGICAL: No headaches, no weakness, PHYSICAL EXAMINATION: GENERAL: The patient is alert and oriented x3, not in any acute distress. Well developed, well nourished. HEENT: Pupils are round and equally reacting to light. EOMI. No scleral icterus. No conjunctival pallor. Normocephalic, atraumatic. No pharyngeal erythema. No t hyromegaly. CARDIOVASCULAR: S1 and S2 present. No murmurs, rubs, or gallops. PULMONARY: Chest is clear to auscultation, no wheezing or crackles. ABDOMEN: Soft, nontender, nondistended, normoactive bowel sounds. No palpable organomegaly. MUSCULOSKELETAL: No joint swelling or deformity. EXTREMITIES: No cyanosis, clubbing, or pedal edema. NEUROLOGICAL: Gross neurological examination did not reveal any focal deficits. SKIN: No rashes. Assessment and plan Acute colitis of sigmoid colon History of hyperlipidemia History of gastric ulcer Monitor vital signs Monitor CBC Monitor CMP Continue pain management Continue IV cefepime and Flagyl DC fluid Currently clear liquid diet, advance as tolerated Surgery following ID following Labs and medication were reviewed.. Continue same treatment. Continue with symptomatic treatment. Resume home medication. Monitor labs and vitals. DVT and GI prophylaxis. Further recommendations as per clinical course of the patient Dictation was produced using [employer] dictation software. please excuse any grammatical, word or spelling errors. Objective - Vital Signs Vital signs: Vital Signs Temp 98.2 F 04/07/25 13:15 Pulse 73 04/07/25 13:15 Resp 16 04/07/25 13:15 BP 109/69 04/07/25 13:15 Pulse Ox 96 04/07/25 13:15 FiO2 Intake & Output 04/06/25 04/07/25 04/07/25 18:59 06:59 18:59 Other: # Voids 3 3 - Labs CBC & Chem 7: 04/06/25 12:22 04/05/25 13:50 Labs: Microbiology - Last 24 Hours (Table) 04/05/25 13:50 Blood Culture - Preliminary Blood
--- NOTE | 2025-04-08 14:34 | P.PN ---
Subjective Progress Note Date: 04/08/25 CHIEF COMPLAINT: Diverticulitis HISTORY OF PRESENT ILLNESS: The patient is a 64-year-old female admitted for diverticulitis unresponsive to outpatient management. Patient denies any abdominal pain. She denies any vomiting. She did have some nausea after eating sherbet. She reports that it was too sweet. Overall she is feeling better. Afebrile. Last WBC is 8.61 PHYSICAL EXAM: VITAL SIGNS: Reviewed GENERAL: Well-developed in no acute distress. HEENT: No sclera icterus. Extraocular movements grossly intact. Moist buccal mucosa. Head is atraumatic, normocephalic. Hears conversational speech. No nasal drainage. NECK: Supple without lymphadenopathy. CHEST: Non-labored respirations and equal bilateral excursions. CARDIOVASCULAR: Palpable 2+ radial pulses. ABDOMEN: Soft. Nondistended. Nontender. No peritonitis MUSCULOSKELETAL: No clubbing or cyanosis. NEUROLOGIC: No focal or lateralizing signs. Cranial nerves II through XII grossly intact. PSYCH: Appropriate affect. Alert and oriented to person, place and time. SKIN: Well perfused. Good skin turgor. ASSESSMENT: 1. Diverticulitis 2. Gastric ulcers PLAN: 1. Continue Protonix for gastric ulcers 2. Outpatient colonoscopy in 4 to 6 weeks described. 3. Continue a full liquid diet 4. Patient can be discharged from surgical standpoint on a full liquid diet for 48 hours and then advance to low fiber diet on 04/11/2025 5. Patient will need antibiotics at discharge. Discharge antibiotics per infectious disease Physician Flavor Maker note has been reviewed by physician. Signing provider agrees with the documented findings, assessment, and plan of care. Please see additional documentation below per MD CHIEF COMPLAINT: Diverticulitis HISTORY OF PRESENT ILLNESS: The patient is a 64-year-old female admitted for medical refractory diverticulitis despite oral antibiotics. She denies any abdominal pain. Patient was reassessed this evening. She is tearful due to the . She has been tolerating full liquid diet. She is eager to have solid food. ROS: No reports of nausea and vomiting. No fevers or chills. No new chest pain. No productive sputum PHYSICAL EXAM: VITAL SIGNS: Reviewed CONSTITUTIONAL: Well developed and in no acute distress. EYES: Conjuctivae without sclera icterus. Extraocular movements grossly intact. HEAD, EARS, NOSE, THROAT: Moist buccal mucosa. Head is atraumatic, normocephalic. Hears conversational speech. No nasal drainage. RESPIRATORY: Non-labored respirations and equal bilateral excursions. CARDIOVASCULAR: Palpable 2+ radial pulses. ABDOMEN: No peritonitis. Nontender. MUSCULOSKELETAL: No gross deformity of the lower extremities noted. No clubbing. No cyanosis. SKIN: Good skin turgor. Well perfused. NEUROLOGIC: Cranial nerves II through XII grossly intact. No focal or lateralizing signs. PSYCH: Appropriate affect. Alert and oriented to person, place and time. CLINICAL LABS: Reviewed. WBC normal. ASSESSMENT: 1. Diverticulitis. PLAN: 1. May advance diet to low fiber diet with discharge. Dictation was produced using [employer] dictation software. Please excuse any grammatical, word or spelling errors. Objective - Vital Signs Vital signs: Vital Signs Temp 98.6 F 04/08/25 01:30 Pulse 52 L 04/08/25 01:30 Resp 17 04/08/25 01:30 BP 107/65 04/08/25 01:30 Pulse Ox 95 04/08/25 01:30 FiO2 Intake & Output 04/07/25 04/08/25 04/08/25 18:59 06:59 18:59 Other: # Voids 3 3 - Labs CBC & Chem 7: 04/06/25 12:22 04/05/25 13:50 Labs: Microbiology - Last 24 Hours (Table) 04/05/25 13:50 Blood Culture - Preliminary Blood
--- NOTE | 2025-04-08 17:45 | CDI ---
Documentation Clarification Form Date: 04/08/2025 04:57:00 PM From: Franchesca Tucker RN, CCDS Phone: [phone] Admit Date: 04/05/2025 04:18:00 PM Patient Name: Rosemary Cortez Visit Number: [id number] Discharge Date: ATTENTION: The Clinical Documentation Specialists (CDI) and [facility] Coding Staff appreciate your assistance in clarifying documentation. Please respond to the clarification below the line at the bottom and electronically sign. The CDI & [facility] Coding staff will review the response and follow-up if needed. Please note: Queries are made part of the Legal Health Record. If you have any questions, please contact the author of this message via ITS. Doctor. Pola Quintana Conflicting documentation has been found in the medical record. As attending physician, please provide clarification. 04/05 Internal Medicine (H/P) and subsequent progress notes: Acute colitis of sigmoid colon 04/06 Surgical Consult and subsequent progress notes: Overall, uncomplicated diverticulitis improved within 72 hours otherwise 3 days for anticipated disposition. 2. Gastric ulcers 04/06 Internal Medicine (ID Consult)) Acute diverticulitis, outpatient CT abdominal pelvis done with oral his shows acute sigmoid colitis with contained perforation and adjacent phlegmon, will need to cover for the enteric gram- negative both aerobes and anaerobes. History/Risk Factors: GERD/Reflux, Diverticulosis, Clinical Indicators: 64-year-old female present with pain localized to suprapubic left lower quadrant. 04/05 126/86 79 18 97% RA 04/05 Labs: WBC 11.81, Neutrophils 8.93, 04/05 CT ABD/PelvW: Mild sigmoid colon thickening through the distal portion. Correlate for colitis or underlying mass. No suspicious changes to suggest abscess formation or acute diverticulitis. No perforation is identified. Treatment: Flagyl 500MG IVPB Q 6 HRS 04/05-04/08 Cefepime HCl 2 GM IVPB Q1 8 HRS04/06-04/08 Protonix 40MG PO AC-BID 04/06-04/08 Carafate 1 GM PO ACHS 04/06-04/08 714 Full liquid diet for 48 hrs. and then advance to low fiber diet on 04/11/2025 Please clarify which diagnosis is most appropriate: [ ] Acute colitis of sigmoid colon [ x] Acute Diverticulitis of sigmoid colon [ ] Other (please specify) [ ] Unable to determine (Template Last Revised: November 2020) MTDD
[2025-04-09 08:46] VITALS: BP 150/88; PULSE 63; RESP 18; TEMP 97.3
--- NOTE | 2025-04-09 13:19 | P.PN ---
Subjective Progress Note Date: 04/08/25 Principal diagnosis: Reason for follow-up is perforated diverticulitis with contained abscess Patient is a 64-year-old female with a past medical history significant for reflux diverticulosis hernia former smoker has been dealing with abdominal pain for about a week did have a abdominal pelvis CT in the outpatient setting with evidence of diverticulitis and contained perforation for the patient has been admitted to the hospital. On today's evaluation that is 04/08/2025, patient has been afebrile, patient is breathing comfortably and is currently on room air, patient denies having any chest pain and cough, patient denies nausea vomiting and improvement in her ab dominal pain tolerating her diet. No new lab has been obtained today blood culture for pending Objective - Vital Signs Vital signs: Vital Signs Temp 98.3 F 04/08/25 14:04 Pulse 53 L 04/08/25 14:04 Resp 17 04/08/25 14:04 BP 115/72 04/08/25 14:04 Pulse Ox 97 04/08/25 14:04 FiO2 Intake & Output 04/07/25 04/08/25 04/08/25 18:59 06:59 18:59 Other: # Voids 3 3 - Exam GENERAL DESCRIPTION: An elderly female lying in bed in no distress RESPIRATORY SYSTEM: Unlabored breathing , decreased breath sounds at bases HEART: S1 S2 regular rate and rhythm , ABDOMEN: Soft , no tenderness EXTREMITIES: No edema feet - Labs CBC & Chem 7: 04/06/25 12:22 04/05/25 13:50 Labs: Microbiology - Last 24 Hours (Table) 04/05/25 13:50 Blood Culture - Preliminary Blood Assessment and Plan (1) Acute diverticulitis Status: Acute Code(s): K57.92 - DVTRCLI OF INTEST, PART UNSP, W/O PERF OR ABSCESS W/O BLEED SNOMED Code(s): 284609169 (2) Penicillin allergy Status: Acute Code(s): Z88.0 - ALLERGY STATUS TO PENICILLIN SNOMED Code(s): 57654375 (3) Leukocytosis Status: Acute Code(s): D72.829 - ELEVATED WHITE BLOOD CELL COUNT, UNSPECIFIED SNOMED Code(s): 050805756 Plan: 1patient presented to hospital abdominal pain of 1 week duration pain has been lower abdominal area with the outpatient CT abdominal pelvis done with oral contrast this shows acute sigmoid colitis with contained perforation and adjacent phlegmon, will need to cover for the enteric gram-negative both aerobes and anaerobes 2-patient did have penicillin allergy that would limit the number of antibiotic safe to use 3-leukocytosis likely related to perforated diverticulitis and phlegmon, he did have resolution of her leukocytosis blood culture has been negative so far 4-we will treat the patient with cefepime and add Flagyl while inpatient and finishing therapy with oral Ceftin and Flagyl on discharge Dictation was produced using [employer] dictation software. please excuse any grammatical, word or spelling errors. Time with Patient: Less than 30
--- NOTE | 2025-04-09 14:17 | P.DS ---
Providers Date of admission: 04/05/25 16:18 Expected date of discharge: 04/09/25 Attending physician: Alhaji Medel MD Consults: 04/05/25 16:17 Consult Physician Routine Consulting Provider: Bela Roque Consult Reason/Comments: Diverticulitis with perforation Do you want consulting provider notified?: Already Contacted 04/06/25 13:35 Consult Physician Routine Consulting Provider: Pepper Uribe Consult Reason/Comments: Diverticulitis Do you want consulting provider notified?: Yes Primary care physician: Keanu [facility] Course: Discharge diagnoses; Acute diverticulitis of sigmoid colon History of hyperlipidemia History of gastric ulcer Hospital course; 64-year old lady with past medical history significant for hyperlipidemia, diverticulitis who presented to the ER for abdominal pain. Patient stated that she was having abdominal pain for the last few days, was diagnosed as having diverticulitis and was placed on oral antibiotics. Patient stated that he continued to have abdominal pain. There was no complaint nausea or vomiting. Patient denies any fever or chills. There was no complaint of chest pain. Patient denies any orthopnea or PND. Patient had a repeat CT scan done outpatient yesterday at which time she was called to come to the ER for possible perforation. Initial lab work done in the ER showed WBC 11.81, hemoglobin 12, platelet count 309, sodium 130, potassium 4.8, BUN 11, creatinine 0.63, glucose 95, AST 30, ALT 25, lipase 63 UA negative for infection CT abdominal pelvis showed disc bulging and ligamentum flavum laxity L4-L5 with some spinal canal narrowing. Mild sigmoid colon thickening suspicious for colitis Patient admitted to internal medicine service 04/07. Patient seen examined. States abdominal pain has improved. Denies any nausea or vomiting. Currently on clear liquid diet 04/08. Patient seen examined. Abdominal pain improved, diet advanced to regular 04/09. Patient seen and examined. Being discharged on oral Ceftin and Flagyl for 10 days per ID recommendations. PHYSICAL EXAMINATION: GENERAL: The patient is alert and oriented x3, not in any acute distress. Well developed, well nourished. HEENT: Pupils are round and equally reacting to light. EOMI. No scleral icterus. No conjunctival pallor. Normocephalic, atraumatic. No pharyngeal erythema. No thyromegaly. CARDIOVASCULAR: S1 and S2 present. No murmurs, rubs, or gallops. PULMONARY: Chest is clear to auscultation, no wheezing or crackles. ABDOMEN: Soft, nontender, nondistended, normoactive bowel sounds. No palpable organomegaly. MUSCULOSKELETAL: No joint swelling or deformity. EXTREMITIES: No cyanosis, clubbing, or pedal edema. NEUROLOGICAL: Gross neurological examination did not reveal any focal deficits. SKIN: No rashes. Dictation was produced using [employer] dictation software. please excuse any grammatical, word or spelling errors. Patient Condition at Discharge: Stable Plan - Discharge Summary Discharge Rx Participant: Yes New Discharge Prescriptions: New cefuroxime axetiL [Ceftin] 500 mg PO BID 10 Days #20 tab Pantoprazole [Protonix] 40 mg PO AC-BID 30 Days #60 tab metroNIDAZOLE [Flagyl] 500 mg PO TID 10 Days #30 tab Continue Sucralfate [Carafate] 1 gm PO ACHS Butalb/APAP/Caff 50-325-40Mg [Fioricet 50-325-40] 1 tab PO DAILY PRN PRN Reason: Migraine Headache Oxybutynin Xl [Ditropan XL] 5 mg PO HS Sertraline [Zoloft] 100 mg PO DAILY Triple [place] 1 dose PO DAILY Albuterol Inhaler [Ventolin Hfa Inhaler] 2 puff INHALATION RT-QID PRN PRN Reason: Shortness Of Breath Rosuvastatin [Crestor] 20 mg PO HS LORazepam [Ativan] 1 mg PO BID Calcium Carbonate/Vitamin D3 [Calcium 600-D3 20 mcg (800 Unit)] 1 tab PO DAILY Multivit with Calcium,Iron,Min [Women's Multivitamin] 1 tab PO DAILY Discontinued Ciprofloxacin HCl 500 mg PO Q12H Discharge Medication List Albuterol Inhaler [Ventolin Hfa Inhaler] 2 puff INHALATION RT-QID PRN 12/07/24 [History] Butalb/APAP/Caff 50-325-40Mg [Fioricet 50-325-40] 1 tab PO DAILY PRN 12/07/24 [History] Oxybutynin Xl [Ditropan XL] 5 mg PO HS 12/07/24 [History] Rosuvastatin [Crestor] 20 mg PO HS 12/07/24 [History] Sucralfate [Carafate] 1 gm PO ACHS 12/07/24 [History] Calcium Carbonate/Vitamin D3 [Calcium 600-D3 20 mcg (800 Unit)] 1 tab PO DAILY 04/05/25 [History] LORazepam [Ativan] 1 mg PO BID 04/05/25 [History] Multivit with Calcium,Iron,Min [Women's Multivitamin] 1 tab PO DAILY 04/05/25 [History] Sertraline [Zoloft] 100 mg PO DAILY 04/05/25 [History] Triple [place] 1 dose PO DAILY 04/05/25 [History] Pantoprazole [Protonix] 40 mg PO AC-BID 30 Days #60 tab 04/09/25 [Rx] cefuroxime axetiL [Ceftin] 500 mg PO BID 10 Days #20 tab 04/09/25 [Rx] metroNIDAZOLE [Flagyl] 500 mg PO TID 10 Days #30 tab 04/09/25 [Rx] Follow up Appointment(s)/Referral(s): Keanu Iraheta MD [Primary Care Provider] - 1-2 days Bela Roque MD [STAFF PHYSICIAN] - 04/30/25 3:00 pm (Obtain referral from PCP) Patient Instructions/Handouts: Diverticulitis (GEN), Low Fiber Diet (DC), Diverticulitis Diet (GEN) Activity/Diet/Wound Care/Special Instructions: Full liquid diet for 48 hours then may start low fiber diet, no seeds, nuts, no broccoli 04/11/2025 Discharge Disposition: HOME SELF-CARE
--- NOTE | 2025-04-09 14:18 | P.PN ---
Subjective Progress Note Date: 04/08/25 Progress note for 04/08 64-year old lady with past medical history significant for hyperlipidemia, diverticulitis who presented to the ER for abdominal pain. Patient stated that she was having abdominal pain for the last few days, was diagnosed as having diverticulitis and was placed on oral antibiotics. Patient stated that he continued to have abdominal pain. There was no complaint nausea or vomiting. Patient denies any fever or chills. There was no complaint of chest pain. Patient denies any orthopnea or PND. Patient had a repeat CT scan done outpatient yesterday at which time she was called to come to the ER for possible perforation. Initial lab work done in the ER showed WBC 11.81, hemoglobin 12, platelet count 309, sodium 130, potassium 4.8, BUN 11, creatinine 0.63, glucose 95, AST 30, ALT 25, lipase 63 UA negative for infection CT abdominal pelvis showed disc bulging and ligamentum flavum laxity L4-L5 with some spinal canal narrowing. Mild sigmoid colon thickening suspicious for colitis Patient admitted to internal medicine service 04/07. Patient seen examined. States abdominal pain has improved. Denies any nausea or vomiting. Currently on clear liquid diet 04/08. Patient seen examined. Abdominal pain has improved. Diet advanced to regular REVIEW OF SYSTEMS: CONSTITUTIONAL: No fever, no malaise,. CARDIOVASCULAR: No chest pain, no palpitations, no syncope. PULMONARY: No shortness of breath, no cough, GASTROINTESTINAL: Mentioned above NEUROLOGICAL: No headaches, no weakness, PHYSICAL EXAMINATION: GENERAL: The patient is alert and oriented x3, not in any acute distress. Well developed, well nourished. HEENT: Pupils are round and equally reacting to light. EOMI. No scleral icterus. No conjunctival pallor. Normocephalic, atraumatic. No pharyngeal erythema. No thyromegaly. CARDIOVASCULAR: S1 and S2 present. No murmurs, rubs, or gallops. PULMONARY: Chest is clear to auscultation, no wheezing or crackles. ABDOMEN: Soft, nontender, nondistended, normoactive bowel sounds. No palpable organomegaly. MUSCULOSKELETAL: No joint swelling or deformity. EXTREMITIES: No cyanosis, clubbing, or pedal edema. NEUROLOGICAL: Gross neurological examination did not reveal any focal deficits. SKIN: No rashes. Assessment and plan Acute colitis of sigmoid colon History of hyperlipidemia History of gastric ulcer Monitor vital signs Monitor CBC Monitor CMP Continue pain management Continue IV cefepime and Flagyl Diet advanced to regular Surgery following ID following Labs and medication were reviewed.. Continue same treatment. Continue with symptomatic treatment. Resume home medication. Monitor labs and vitals. DVT and GI prophylaxis. Further recommendations as per clinical course of the patient Dictation was produced using [employer] dictation software. please excuse any grammatical, word or spelling errors. Objective - Vital Signs Vital signs: Vital Signs Temp 97.3 F L 04/09/25 07:20 Pulse 63 04/09/25 07:20 Resp 18 04/09/25 07:20 BP 150/88 04/09/25 07:20 Pulse Ox 97 04/09/25 07:20 FiO2 Intake & Output 04/08/25 04/09/25 04/09/25 18:59 06:59 18:59 Other: # Voids 2 4 # Bowel Movements 2 - Labs CBC & Chem 7: 04/06/25 12:22 04/05/25 13:50 Labs: Microbiology - Last 24 Hours (Table) 04/05/25 13:50 Blood Culture - Preliminary Blood
== END 2025-04-09 12:26 | disposition home or self-care (01) | DRG 392 ==
LOC: EC 12:29 → 4SSUR 16:18
PROVIDERS: ADMIT Internal Medicine; ATTEND Internal Medicine
DX: K57.32 Diverticulitis of large intestine without perforation or abscess without bleeding (principal); E78.5 Hyperlipidemia, unspecified; M43.6 Torticollis; M51.369 Other intervertebral disc degeneration, lumbar region without mention of lumbar back pain or lower extremity pain; K21.9 Gastro-esophageal reflux disease without esophagitis; R31.9 Hematuria, unspecified; Z87.11 Personal history of peptic ulcer disease; Z79.83 Long term (current) use of bisphosphonates; Z79.899 Other long term (current) drug therapy; Z87.891 Personal history of nicotine dependence; Z88.0 Allergy status to penicillin; Z88.5 Allergy status to narcotic agent
CPT/HCPCS: 36415; 74177; 80053; 81001; 82150; 83605; 83690; 85025; 85610; 85730; 87040; 96361; 96365; 96368; 96375; 99285